=== PATIENT | female | born 1935 | race Caucasian/White ===

== ENCOUNTER 2017-09-28 06:40 | Outpatient (CLI) ==
[2016-10-09 10:34] VITALS: BMI 29.4
[2017-09-28 08:38] LABS: BASOPHILS % (AUTO) 0.5 % (0.0-3.0); EOSINOPHILS # (AUTO) 0.2 K/ul (0.0-0.7); EOSINOPHILS % (AUTO) 1.9 % (0.0-7.0); HEMOGLOBIN 14.4 g/dl (12.0-16.0); IMMATURE GRANULOCYTE % (AUTO) 0.9 % (0.0-5.0); LYMPHOCYTES # (AUTO) 2.7 K/uL (0.60-3.4); LYMPHOCYTES % (AUTO) 34.8 (10.0-50.0); MEAN CORPUSCULAR HEMOGLOBIN 31.7 pg (27.0-31.0); MEAN CORPUSCULAR HGB CONC 35.1 (31.8-35.4); MEAN CORPUSCULAR VOLUME 90.3 fl (81.0-99.0); MONOCYTES # (AUTO) 0.7 K/uL (0.4-2.0); MONOCYTES % (AUTO) 8.9 (0-10); NEUTROPHILS # (AUTO) 4.1 K/ul (2.0-6.9); PLATELET COUNT 183 10^3/uL (140-440); RED BLOOD COUNT 4.54 10^6/ul (4.20-5.40); WHITE BLOOD COUNT 7.75 K/ul (4.6-10.2)
--- NOTE | 2017-09-28 08:57 | DI ---
EXAM: Two-view chest HISTORY: Shortness of breath COMPARISON: Two-view chest 04/29/2015 FINDINGS: There is stable moderate cardiomegaly. Atherosclerotic changes are seen involving the aor tic arch. There are emphysematous changes.. Degenerative changes noted throughout the mid dorsal sp ine. IMPRESSION: Stable cardiomegaly. ASVD. Emphysematous changes
[2017-09-28 09:18] LABS: ALBUMIN 3.5 g/dL (3.4-5.0); ALBUMIN/GLOBULIN RATIO 0.92; ANION GAP 13.9; BILIRUBIN,TOTAL 0.74 mg/dL (0.00-1.20); BUN/CREATININE RATIO 19.79; CALCIUM 9.6 mg/dL (8.2-10.2); CREATININE 0.96 mg/dL (0.60-1.30); POTASSIUM 3.9 mmol/L (3.5-5.10); TOTAL PROTEIN 7.3 g/dL (5.8-8.1)
== END 2017-09-28 06:41 | disposition home or self-care (01) ==
LOC: CAR 06:40
PROVIDERS: ATTEND Internal Medicine
DX: R06.02 Shortness of breath (principal); I10 Essential (primary) hypertension; I51.7 Cardiomegaly; D64.9 Anemia, unspecified; E78.5 Hyperlipidemia, unspecified; I48.91 Unspecified atrial fibrillation
CPT/HCPCS: 36415; 80053; 80061; 83036; 84443; 85025

== ENCOUNTER 2018-03-11 04:22 | Emergency (ER) ==
[2018-03-11 04:46] VITALS: BP 198/77; TEMP 99.1; BMI 29.0
[2018-03-11] MEDS ORDERED: SOLU-MEDROL 125 MG IVP STA (05:26)
[2018-03-11] MEDS ORDERED: ADRENALIN 1:1000 SDV IM STA (05:28)
--- NOTE | 2018-03-11 05:28 | ED.PDOC ---
General ED Provider: Dr. KAYLA DORAN Chief Complaint: Rash Stated Complaint: 3 month history of rash that is generalzed. Itching got worse despite vistaril and Betametasone cream. she has had a biopsy but has not gotten the results she will be following up next week. States ICe helps. has had no new soaps, Meds or cream the last months. Time Seen by Physician: 05:00 Mode of Arrival: Walk-In Information Source: Patient Primary Care Provider: KIERA ADEN Nursing and Triage Documentation Reviewed and Agree: Yes Reviewed sepsis parameters & appropriate labs ordered?: No System Inflammatory Response Syndrome: Not Applicable Sepsis Protocol: For patient's 13 years and over: Temp is 96.8 and below OR 101 and greater Pulse >90 BPM Resp >20/minute Acutely Altered Mental Status Are patient's symptoms suggestive of a new infection, such as: -Pneumonia -Skin, Soft Tissue -Endocarditis -UTI -Bone, Joint Infection -Implantable Device -Acute Abdominal Infection -Wound Infection -Meningitis -Blood Stream Catheter Infection -Unknown System Inflammatory Response Syndrome: Not Applicable Skin Complaint Exam - Skin Rash/Itching Complaint/Exam Onset/Duration: 3 months Symptoms Are: Still present Initial Severity: Severe Current Severity: Severe Location: diffuse Potential Exposures: Reports: Unknown Prior Treatment: Betametasone cream and Hydroyzine tablets Aggravating: Reports: Heat Alleviating: Reports: Cool compresses Associated Signs and Symptoms: Denies: Difficulty breathing, Fever, Chills Related History: Similar episode Skin Findings: Present: Urticaria, Papules Differential Diagnoses: Allergic Reaction, Contact Dermatitis, Urticaria Review of Systems - Review Of Systems Constitutional: Reports: No symptoms Eyes: Reports: No symptoms Ears, Nose, Mouth, Throat: Reports: No symptoms Respiratory: Reports: No symptoms Cardiac: Reports: No symptoms GI: Reports: No symptoms : Reports: No symptoms Musculoskeletal: Reports: No symptoms Skin: Reports: Rash Neurological: Reports: Anxiety, Depressed Endocrine: Reports: No symptoms Hematologic/Lymphatic: Reports: No symptoms All Other Systems: Reviewed and Negative Past Medical History - Past Medical History Endocrine: Reports: Hypothyroid, Dyslipidemia Cardiovascular: Reports: Hypertension, A-Fib Respiratory: Reports: None Hematological: Reports: None Gastrointestinal: Reports: None Genitourinary: Reports: None Neuro/Psych: Reports: None Musculoskeletal: Reports: None Cancer: Reports: Unknown Last Menstrual Period: menopausal/hysterectomy Other Pertinent Past Medical History: NEUROPATHY FEET - Surgical History General Surgical History: Reports: Hysterectomy, Cholecystectomy, Other (THYROID ) - Family History Family History: Reports: Unknown - Social History Smoking Status: Never smoker Hx Substance Use: No Alcohol Screening: None - Immunizations Tetanus Shot up to Date: Yes Physical Exam - Physical Exam Appearance: Ill-appearing Ill-appearing: Mild Eyes: PARISA, EOMI, Conjunctiva clear ENT: Nose normal, Oropharynx normal Neck: Supple Respiratory: Airway patent, Breath sounds clear, Breath sounds equal, Respirations nonlabored Cardiovascular: RRR, Pulses normal, No rub, No murmur GI/: Soft, Nontender, No masses, Bowel sounds normal, No Organomegaly Skin: Warm, Dry Neurological: Motor intact, Cranial nerves intact, Alert, Oriented Psychiatric: Anxious Critical Care Note - Critical Care Note Total Time (mins): 0 Course - Course Orders, Labs, Meds: Orders Category Date Time Status Epinephrine [Adrenalin 1:1000 Sdv] MEDS 03/11/18 05:28 Discontinued 0.3 mg IM ONCE STA Methylprednisolone Sod Succ/Pf [Solu-Medrol 125 mg] MEDS 03/11/18 05:26 Discontinued 125 mg IVP ONCE STA Medications Discontinued Medications Generic Name Dose Route Start Last Admin Trade Name Freq PRN Reason Stop Dose Admin Epinephrine HCl 0.3 mg 03/11/18 05:28 Adrenalin 1:1000 Sdv IM 03/11/18 05:29 ONCE STA Methylprednisolone Sodium Succinate 125 mg 03/11/18 05:26 Solu-Medrol 125 Mg IVP 03/11/18 05:27 ONCE STA Vital Signs: Temp Pulse Resp BP Pulse Ox 03/11/18 04:31 99.1 F 82 20 198/77 H 95 Departure - Departure Time of Disposition: 05:45 Disposition: HOME SELF-CARE Discharge Problem: Pruritic rash Instructions: Dermatitis (ED) Condition: Stable Pt referred to PMD for follow-up: Yes IPMP verified?: No Additional Instructions: Take Medications as prescribed Follow up with you Mri Technician Prescriptions: Methylprednisolone [Medrol Dosepak] 4 mg PO DIRECTED #1 pkg Allergies/Adverse Reactions: Allergies No Known Allergies Allergy (Verified 03/11/18 04:44) Home Medications: Ambulatory Orders Citalopram Hydrobromide [Celexa] 20 mg PO DAILY 11/18/14 Digoxin [Digox] 250 mcg PO DAILY 11/18/14 Furosemide [Lasix] 20 mg PO DAILY 11/18/14 Gabapentin [Neurontin] 300 mg PO BID 11/18/14 Hydrocodone Bit/Acetaminophen [Lortab 10-500] 1 tab PO BID PRN 11/18/14 Levothyroxine Sodium [Synthroid] 100 mcg PO DAILY 11/18/14 Losartan Potassium [Cozaar] 100 mg PO DAILY 11/18/14 Omeprazole [Prilosec] 20 mg PO DAILY 11/18/14 Potassium Chloride [Klor-Con 10] 20 meq PO DAILY 11/18/14 Warfarin Sodium [Coumadin] 3 mg PO DAILY 11/18/14 Pravastatin Sodium [Pravachol] 1 tab PO DAILY 02/15/15 Methylprednisolone [Medrol Dosepak] 4 mg PO DIRECTED #1 pkg 03/11/18 Disposition Discussed With: Patient, Family
[2018-03-11] MEDS ORDERED: EPINEPHRINE 1:1,000 AMP ONE (05:34)
== END 2018-03-11 06:09 | disposition home or self-care (01) ==
LOC: ED 04:22
DX: R21 Rash and other nonspecific skin eruption (principal); L29.9 Pruritus, unspecified
CPT/HCPCS: 96372; 96374; 99282

== ENCOUNTER 2018-08-26 12:35 | Outpatient (CLI) | payer OTHER ==
--- NOTE | 2018-08-26 13:58 | DI ---
EXAM: Three views of the cervical spine. History: Cervical neck pain. Comparison: Cervical spine radiograph 08/13/2014 Findings: No acute fracture or subluxation of the cervical spine. No prevertebral soft tissue swell ing. Predental space is not widened. Moderate disc space narrowing at C5-6 and C6-7 slightly progre ssed compared to the prior study with prominent anterior osteophytes. Mild to moderate disc space na rrowing seen elsewhere. Impression: 1. No acute osseous abnormality of the cervical spine. 2. Progressive degenerative disc disease
--- NOTE | 2018-08-26 14:02 | DI ---
EXAM: Three views of the thoracic spine. History: Thoracic back pain. Comparison: Thoracic spine radiograph 08/13/2014 Findings: No acute fracture or subluxation of the thoracic spine. Mild to moderate multilevel disc space narrowing again noted with endplate sclerosis and prominent anterior osteophytes. Impression: 1. No acute osseous abnormality of the thoracic spine. 2. Mild to moderate degenerative disc disease is not significantly changed.
== END 2018-08-26 12:36 | disposition home or self-care (01) ==
LOC: RAD 12:35
PROVIDERS: ATTEND Internal Medicine
DX: M54.6 Pain in thoracic spine (principal); M54.2 Cervicalgia

== ENCOUNTER 2021-04-25 07:00 | Inpatient (IN) ==
[2021-04-25] MEDS ORDERED: ZOFRAN 4 MG/2 ML IVP ONE (07:50)
[2021-04-25] MEDS ORDERED: SODIUM CHLORIDE 1,000 ML IV STA (07:50)
--- NOTE | 2021-04-25 07:57 | ED.PDOC ---
General ED Provider: Dr. JAGJIT VALADEZ MD Chief Complaint: Urinary Problem Stated Complaint: burning urination and chest pain Time Seen by Provider: 04/25/21 07:57 Mode of Arrival: Wheelchair Information Source: Patient Primary Care Provider: KIERA ADEN Nursing and Triage Documentation Reviewed and Agree: Yes Does patient meet sepsis criteria?: No System Inflammatory Response Syndrome: Not Applicable Sepsis Protocol: For patient's 13 years and over: Temp is 96.8 and below OR 101 and greater Pulse >90 BPM Resp >20/minute Acutely Altered Mental Status Are patient's symptoms suggestive of a new infection, such as: -Pneumonia -Skin, Soft Tissue -Endocarditis -UTI -Bone, Joint Infection -Implantable Device -Acute Abdominal Infection -Wound Infection -Meningitis -Blood Stream Catheter Infection -Unknown Cardiovascular Complaint Exam Chest Pain Complaint/Exam Onset: Gradual Symptoms Are: Still present Timing: Intermittent Initial Severity: Mild Current Severity: Mild Location: Reports Midsternal Pain Radiates: Reports None Character: Reports Aching Quality Indicator For Non-Traumatic Chest Pain/Syncope: EKG Performed Review of Systems Review Of Systems Constitutional: Denies Fever Eyes: Reports No symptoms Ears, Nose, Mouth, Throat: Reports No symptoms Respiratory: Reports Short of air Cardiac: Reports Chest pain GI: Reports Abdominal pain; Denies Abdomen distended : Reports Burning Musculoskeletal: Reports Back pain Skin: Reports No symptoms Neurological: Reports No symptoms All Other Systems: Other [facility] Social History Smoking and tobacco status: Former smoker Female Reproductive History Menstrual Hx Hysterectomy: Yes Hx Tubal Ligation: No Physical Exam Physical Exam Appearance: Reports Well-appearing Ill-appearing: Not Applicable Pain Distress: Mild Eyes: Reports PARISA ENT: Reports Not Examined Neck: Supple Respiratory: Reports Airway patent and Breath sounds clear Cardiovascular: Reports RRR GI/: Reports Soft; Denies Tender Musculoskeletal: Reports ROM intact Skin: Reports Warm and Dry Neurological: Reports Sensation intact Psychiatric: Reports Affect appropriate Interpretation Radiology Interpretation Radiology Interpretation By: Radiologist Radiology Results: No acute changes Exam Interpreted: CXR Radiology Interpretation By: Radiologist Exam Interpreted: CT Scan Xray Comments: degen changes in L spine, +left hydronephrosis w/o stone EKG Interpretation Rate: Normal Rhythm: Other Interpretation: atrial fib 73, lvh, lateral t wave abnormal similar to 02/2014 Re-Evaluation Re-Evaluation Time of Re-Evaluation: 09:26 Status: Improved Vital Signs Stable: Yes Appearance: NAD Skin: Warm and Dry Neuro: Alert and Oriented X3 Critical Care Note Critical Care Note Total Critical Care Time (mins): 0 Course Course Hematology/Chemistry: 04/25/21 07:57 04/25/21 07:57 Orders, Labs, Meds: Lab Review 04/25/21 04/25/21 04/25/21 07:57 07:57 07:57 WBC 12.44 H RBC 4.02 L Hgb 12.7 Hct 38.2 MCV 95.0 MCH 31.6 H MCHC 33.2 RDW Coeff of Caleb 14.2 Plt Count 157 Immature Gran % (Auto) 1.4 Neut % (Auto) 73.4 Lymph % (Auto) 10.2 [place] % (Auto) 13.6 H Eos % (Auto) 1.2 Baso % (Auto) 0.2 Neut # (Auto) 9.1 H Lymph # (Auto) 1.3 [place] # (Auto) 1.7 Eos # (Auto) 0.2 Baso # (Auto) 0.0 Immature Gran # (Auto) 0.2 PT 18.5 H INR 1.74 Sodium 138.3 Potassium 4.05 Chloride 100.9 Carbon Dioxide 32.2 H Anion Gap 9.25 BUN 25.4 H Creatinine 1.17 Estimated GFR (MDRD) 44.00 BUN/Creatinine Ratio 21.70 Glucose 167.6 H Calcium 9.26 Total Bilirubin 0.98 AST 20.8 ALT 13.3 Alkaline Phosphatase 64.9 Total Creatine Kinase 26.5 L Troponin I 0.025 Total Protein 7.67 Albumin 4.48 Globulin 3.19 Albumin/Globulin Ratio 1.40 Urine Color Urine Clarity Urine pH Ur Specific [place] Urine Protein Urine Glucose (UA) Urine Ketones Urine Blood Urine Nitrite Urine Bilirubin Urine Urobilinogen Ur Leukocyte Esterase Urine Microscopic RBC Urine Microscopic WBC Ur Squamous Epith Cells Urine Bacteria Digoxin 04/25/21 04/25/21 07:57 08:45 WBC RBC Hgb Hct MCV MCH MCHC RDW Coeff of [place] Plt Count Immature Gran % (Auto) Neut % (Auto) Lymph % (Auto) [place] % (Auto) Eos % (Auto) Baso % (Auto) Neut # (Auto) Lymph # (Auto) [place] # (Auto) Eos # (Auto) Baso # (Auto) Immature Gran # (Auto) PT INR Sodium Potassium Chloride Carbon Dioxide Anion Gap BUN Creatinine Estimated GFR (MDRD) BUN/Creatinine Ratio Glucose Calcium Total Bilirubin AST ALT Alkaline Phosphatase Total Creatine Kinase Troponin I Total Protein Albumin Globulin Albumin/Globulin Ratio Urine Color Yellow Urine Clarity Clear Urine pH 7.5 Ur Specific [place] 1.015 Urine Protein 2+ H Urine Glucose (UA) Negative Urine Ketones Negative Urine Blood 2+ H Urine Nitrite Negative Urine Bilirubin Negative Urine Urobilinogen 1.0 H Ur Leukocyte Esterase 2+ H Urine Microscopic RBC 30-50 Urine Microscopic WBC 10-20 Ur Squamous Epith Cells 5-10 Urine Bacteria 1+ Digoxin 0.94 Orders Category Date Time Status EKG-(ED ONLY) Stat CARDIO 04/25/21 07:48 Completed CBC W/ AUTO DIFF Stat LAB 04/25/21 07:57 Completed COMPREHENSIVE METABOLIC PANEL Stat LAB 04/25/21 07:57 Completed CREATINE KINASE Stat LAB 04/25/21 07:57 Completed DIGOXIN Stat LAB 04/25/21 07:57 Completed PT WITH INR Stat LAB 04/25/21 07:57 Completed TROPONIN I Stat LAB 04/25/21 07:57 Completed URINALYSIS C & S IF INDICATED Stat LAB 04/25/21 08:45 Completed URINE CULTURE Stat LAB 04/25/21 08:45 Received Clonidine HCl [Catapres] MEDS 04/25/21 09:23 Once 0.1 mg PO ONCE ONE Ondansetron HCl/Pf [Zofran 4 mg/2 ml] MEDS 04/25/21 07:50 Discontinued 4 mg IVP ONCE ONE Piperacillin Sodium/Tazobactam [Zosyn 3.375 gm] 3.375 MEDS 04/25/21 09:23 Orde red gm 0.9 % Sodium Chloride [Sodium Chloride] 50 ml IV ONCE Sodium Chloride 0.9% [Sodium Chloride] 1,000 ml MEDS 04/25/21 07:50 Discontinued IV BOLUS CHEST, 1V AP ONLY Stat RADS 04/25/21 07:[address] ABDOMEN/PELVIS WO CONTRAST Stat RADS 04/25/21 07:[address] LUMBAR SPINE W/O CONTRAST Stat RADS 04/25/21 07:50 Completed Medications Discontinued Medications Generic Name Dose Route Start Last Admin Trade Name Freq PRN Reason Stop Dose Admin Clonidine 0.1 mg 04/25/21 09:23 Clonidine Hcl 0.1 Mg Tablet PO 04/25/21 09:24 ONCE ONE Sodium Chloride 1,000 mls @ 1,000 mls/hr 04/25/21 07:50 04/25/21 08:43 Sodium Chloride IV 04/25/21 08:49 1,000 mls/hr BOLUS STA Administration Ondansetron HCl 4 mg 04/25/21 07:50 04/25/21 08:25 Ondansetron Hcl/Pf 4 Mg/2 Ml Sdv IVP 04/25/21 07:51 4 mg ONCE ONE Administration Vital Signs: Temp Pulse Resp BP Pulse Ox 04/25/21 07:00 98.8 F 84 16 183/69 H 94 L LEE Risk Score LEE Risk Score: Risk Score Odds of by 30D 0 0.1 (0.1-0.2) 1 0.3 (0.2-0.3) 2 0.4 (0.3-0.5) 3 0.7 (0.6-0.9) 4 1.2 (1.0-1.5) 5 2.2 (1.9-2.6) 6 3.0 (2.5-3.6) 7 4.8 (3.8-6.1) Discharge Plan Discharge Prescriptions: No Action potassium chloride [Klor-Con 10] 10 MEQ tablet extended release 20 meq PO DAILY RF: 0 digoxin [Digox] 250 MCG tablet 250 mcg PO DAILY RF: 0 warfarin [Coumadin] 3 MG tablet 3 mg PO DAILY RF: 0 levothyroxine [Synthroid] 100 MCG tablet 100 mcg PO DAILY RF: 0 hydrocodone-acetaminophen 1 TAB tablet 1 tab PO BID PRN (Reason: arthritis pain) RF: 0 citalopram 20 MG tablet 20 mg PO DAILY RF: 0 gabapentin 300 MG capsule 300 mg PO BID RF: 0 omeprazole 20 MG capsule,delayed release(DR/EC) 20 mg PO DAILY RF: 0 furosemide [Lasix] 20 MG tablet 20 mg PO DAILY RF: 0 losartan [Cozaar] 100 MG tablet 100 mg PO DAILY RF: 0 pravastatin 20 MG tablet 1 tab PO DAILY RF: 0 ED Provider: JAGJIT VALADEZ Physician Progress Note: [inpatient tele admit d/w Dr Aden for chest pain, left hydronephrosis, dehydration, uti]
[2021-04-25 08:05] LABS: BASOPHILS % (AUTO) 0.2 % (0.0-3.0); EOSINOPHILS # (AUTO) 0.2 K/ul (0.0-0.7); EOSINOPHILS % (AUTO) 1.2 % (0.0-7.0); HEMATOCRIT 38.2 % (37.0-47.0); HEMOGLOBIN 12.7 g/dl (12.0-16.0); IMMATURE GRANULOCYTE # (AUTO) 0.2 (0.0-1.0); IMMATURE GRANULOCYTE % (AUTO) 1.4 % (0.0-5.0); LYMPHOCYTES # (AUTO) 1.3 K/uL (0.60-3.4); LYMPHOCYTES % (AUTO) 10.2 (10.0-50.0); MEAN CORPUSCULAR HEMOGLOBIN 31.6 pg (27.0-31.0); MEAN CORPUSCULAR HGB CONC 33.2 (31.8-35.4); MONOCYTES # (AUTO) 1.7 K/uL (0.4-2.0); NEUTROPHILS # (AUTO) 9.1 K/ul (2.0-6.9); NEUTROPHILS % (AUTO) 73.4 % (42.2-75.2); PLATELET COUNT 157 10^3/uL (140-440); RDW COEFFICIENT OF VARIATION 14.2 % (11.6-14.8); RED BLOOD COUNT 4.02 10^6/ul (4.20-5.40); WHITE BLOOD COUNT 12.44 K/ul (4.6-10.2)
[2021-04-25 08:13] LABS: PROTHROMBIN TIME 18.5 SEC (9.3-11.0)
[2021-04-25 08:14] LABS: ALANINE AMINOTRANSFERASE 13.3 U/L (0-35); ALBUMIN 4.48 g/dL (3.5-5.0); ALKALINE PHOSPHATASE 64.9 U/L (53-141); ASPARTATE AMINO TRANSFERASE 20.8 U/L (14-36); BILIRUBIN,TOTAL 0.98 mg/dL (0.2-1.3); BLOOD UREA NITROGEN 25.4 mg/dL (7-17); CALCIUM 9.26 mg/dL (8.4-10.2); CARBON DIOXIDE 32.2 mmol/L (22-30.0); CHLORIDE 100.9 mmol/L (98-107); CREATINE KINASE 26.5 U/L (30-135); CREATININE 1.17 mg/dL (0.60-1.30); GLUCOSE 167.6 mg/dL (74-106); POTASSIUM 4.05 mmol/L (3.5-5.1); SODIUM 138.3 mmol/L (134.5-145); TOTAL PROTEIN 7.67 g/dL (6.3-8.2)
[2021-04-25 08:25] LABS: TROPONIN I 0.025 ng/ml (0.0000-0.120)
[2021-04-25 08:28] LABS: MONOCYTES % (AUTO) 13.6 (0-10)
--- NOTE | 2021-04-25 08:28 | DI ---
EXAM: Chest one view, frontal view only. HISTORY: Chest pain. COMPARISON: 09/28/2017. FINDINGS: The heart size is enlarged. Atherosclerotic calcifications are present. There is no pulm onary vascular congestion. The lungs are clear. No pleural effusion or pneumothorax is seen. No ac julio osseous abnormality is identified. Since the prior study, there has been no significant interval change. IMPRESSION: No acute cardiopulmonary process.
--- NOTE | 2021-04-25 08:45 | CT ---
EXAM: CT lumbar spine without contrast. HISTORY: Back pain. COMPARISON: Abdominal CT 09/01/2020, 10/09/2016. TECHNIQUE: Multiple axial images of the lumbar spine were obtained without intravenous contrast. Im ages were reformatted in the sagittal and coronal planes. FINDINGS: The normal curvature and alignment are maintained. Vertebral body heights are normal. Mo derate loss of disc height at L4-5. Mild loss of disc height at L2-3. No fracture or subluxation is seen. T12-L1: No neural compromise. L1-2: No neural compromise. L2-3: Disc osteophyte formation causes mild central canal stenosis. L3-4: Broad-based disc bulge, facet arthropathy and thickening of the ligament flavum flattens the v entral thecal sac. L4-5: Broad-based disc bulge, disc osteophyte formation, thickening of ligamentum flavum and facet a rthropathy cause severe central canal stenosis and mild bilateral neural foraminal narrowing. L5-S1: Disc osteophyte formation and facet arthropathy with mild to moderate neural foraminal narrow ing. Adjacent soft tissues are unremarkable. Right lung bases are clear. Right renal cysts. Probable sm all hemorrhagic left renal cyst, incompletely imaged. Left pelviectasis stable from prior abdominal CT. Diverticulosis. IMPRESSION: 1. No acute fracture. 2. Multilevel degenerative changes as described, greatest at L4-5 with severe central canal stenosis . All CT scans are performed using dose optimization techniques as appropriate to the performed exam an d include at least one of the following: Automated exposure control, adjustment of the mA and/or kV according t o size, and the use of iterative reconstruction technique.
--- NOTE | 2021-04-25 08:48 | CT ---
EXAM: CT abdomen pelvis without contrast HISTORY: Abdominal pain COMPARISON: 09/01/2020 TECHNIQUE: CT abdomen pelvis performed with intravenous contrast. Coronal and sagittal reformatted images obtained. FINDINGS: Mild bibasilar subsegmental atelectasis and/or scarring. No free air. No acute abnormali ties of the bones. Generate change in the spine. Osteoarthritis of the hips. The heart is enlarged . Evaluation organ parenchyma limited without contrast. Liver is enlarged. Possible contour nodula rity of the liver. +Granulomas calcification in the liver. Patient status post cholecystectomy. Pa ncreas unremarkable. Spleen with granulomas calcification, otherwise unremarkable. Adrenals unremar kable. 5.7 cm right renal cyst and additional right renal lesions measuring 2.0 and 2.9 cm measuring greater than simple fluid attenuation. Mild to moderate left hydronephrosis without obstructing lesly culus identified. No hydroureter identified. Mild left perinephric stranding. Bladder unremarkable . Patient status post hysterectomy. Small fat-containing periumbilical hernia. Aorta normal in lesly iber. Moderate atherosclerosis. No lymphadenopathy. No ascites. Small hiatal hernia. Nonspecific bowel gas pattern with mild gaseous distension of a few loops small bowel. Appendix not visualized. Colonic diverticulosis. IMPRESSION: 1. Mild to moderate left hydronephrosis without obstructing calculus or hydroureter. Hydronephrosis also present on prior examination. Etiology is indeterminate. Ureteropelvic junction obstruction, stricture, or non-visualized mass within the differential diagnosis. Recently passed stone considere d less likely given persistence. Recommend urology consultation and consider further evaluation with CT urogram. 2. Nonspecific left perinephric stranding, could relate to #1. Recommend clinical correlation for a ny evidence of infectious etiology. 3. Two right renal lesions measuring greater than simple fluid attenuation, indeterminate. These ca n also be evaluated with CT urogram. Additional right renal cyst. 4. Nonspecific bowel gas pattern with mild gaseous distension of a few loops small bowel, could rela te to mild ileus or enteritis. 5. Hepatomegaly. Possible cirrhotic configuration of the liver. 6. Colonic diverticulosis 7. Small hiatal hernia. 8. Atherosclerosis. All CT scans are performed using dose optimization techniques as appropriate to the performed exam an d include at least one of the following: Automated exposure control, adjustment of the mA and/or kV according t o size, and the use of iterative reconstruction technique.
[2021-04-25 08:56] LABS: BILIRUBIN,URINE Negative (NEGATIVE); CLARITY,URINE Clear (CLEAR); COLOR,URINE Yellow (YELLOW); GLUCOSE, URINE (UA) Negative (NEGATIVE); KETONES,URINE Negative (NEGATIVE); LEUKOCYTE ESTERASE ,URINE 2+ (NEGATIVE); NITRITE,URINE Negative (NEGATIVE); PH,URINE 7.5 (5-9); PROTEIN,URINE 2+ (NEGATIVE); URINE, BLOOD 2+ (NEGATIVE)
[2021-04-25 08:58] LABS: URINE RBC, MICROSCOPIC 30-50 (0-2)
[2021-04-25 09:00] LABS: BACTERIA,URINE 1+ (NOT PRESENT)
[2021-04-25] MEDS ORDERED: ZOSYN 3.375 GM 3.375 GM in SODIUM CHLORIDE 50 ML IV ONE (09:23)
[2021-04-25] MEDS ORDERED: CATAPRES PO ONE (09:23)
[2021-04-25 09:28] LABS: BORDETELLA PARAPERTUSSIS (PCR) NOT DETECTED (NOT DETECT); BORDETELLA PERTUSSIS (PCR) NOT DETECTED (NOT DETECT); CHLAMYDIA PNEUMONIAE (PCR) NOT DETECTED (NOT DETECT); CORONAVIRUS 229E (PCR) NOT DETECTED (NOT DETECT); CORONAVIRUS HKU1 (PCR) NOT DETECTED (NOT DETECT); CORONAVIRUS NL63 (PCR) NOT DETECTED (NOT DETECT); CORONAVIRUS OC43 (PCR) NOT DETECTED (NOT DETECT); HUMAN METAPNEUMOVIRUS (PCR) NOT DETECTED (NOT DETECT); HUMAN RHINOVIRUS/ENTEROV (PCR) NOT DETECTED (NOT DETECT); INFLUENZA B (PCR) NOT DETECTED (NOT DETECT); MYCOPLASMA PNEUMONIAE (PCR) NOT DETECTED (NOT DETECT); PARAINFLUENZA VIRUS 1 (PCR) NOT DETECTED (NOT DETECT); PARAINFLUENZA VIRUS 2 (PCR) NOT DETECTED (NOT DETECT); PARAINFLUENZA VIRUS 3 (PCR) NOT DETECTED (NOT DETECT); PARAINFLUENZA VIRUS 4 (PCR) NOT DETECTED (NOT DETECT); RESPIRATORY SYNCYTIAL V (PCR) NOT DETECTED (NOT DETECT); SARS_COV_2 (PCR) NOT DETECTED (NOT DETECT)
[2021-04-25] MEDS ORDERED: TYLENOL PO ONE (09:29)
[2021-04-25 10:15] LABS: ADENOVIRUS (PCR) NOT DETECTED (NOT DETECT)
[2021-04-25 11:08] VITALS: BMI 28.8
[2021-04-25] MEDS ORDERED: NEURONTIN PO PRN (11:19)
[2021-04-25] MEDS ORDERED: ZANAFLEX PO PRN (11:49)
[2021-04-25] MEDS ORDERED: DEXTROSE 5%-1/2NS IV SOLUTION 1,000 ML IV SCH (12:30)
[2021-04-25] MEDS ORDERED: ZOSYN 3.375 GM 3.375 GM in SODIUM CHLORIDE 50 ML IV SCH ×2 (13:00→14:00)
[2021-04-25] MEDS ORDERED: COUMADIN PO SCH (18:50)
[2021-04-25] MEDS: NORCO 10-325 PO PRN (20:18)
[2021-04-25] MEDS: ZOSYN 3.375 GM 3.375 GM in SODIUM CHLORIDE 50 ML IV SCH ×2 (20:19→23:16)
[2021-04-26] MEDS: NORCO 10-325 PO PRN (04:59)
[2021-04-26 05:23] LABS: BASOPHILS % (AUTO) 0.4 % (0.0-3.0); EOSINOPHILS # (AUTO) 0.2 K/ul (0.0-0.7); EOSINOPHILS % (AUTO) 1.8 % (0.0-7.0); HEMATOCRIT 33.3 % (37.0-47.0); HEMOGLOBIN 11.1 g/dl (12.0-16.0); IMMATURE GRANULOCYTE # (AUTO) 0.1 (0.0-1.0); IMMATURE GRANULOCYTE % (AUTO) 0.9 % (0.0-5.0); LYMPHOCYTES # (AUTO) 1.3 K/uL (0.60-3.4); LYMPHOCYTES % (AUTO) 13.1 (10.0-50.0); MEAN CORPUSCULAR HGB CONC 33.3 (31.8-35.4); MONOCYTES # (AUTO) 1.2 K/uL (0.4-2.0); MONOCYTES % (AUTO) 11.9 (0-10); NEUTROPHILS % (AUTO) 71.9 % (42.2-75.2); PLATELET COUNT 137 10^3/uL (140-440); RDW COEFFICIENT OF VARIATION 14.3 % (11.6-14.8); RED BLOOD COUNT 3.47 10^6/ul (4.20-5.40); WHITE BLOOD COUNT 9.73 K/ul (4.6-10.2)
[2021-04-26 05:39] LABS: PROTHROMBIN TIME 16.7 SEC (9.3-11.0)
[2021-04-26 05:43] LABS: ALANINE AMINOTRANSFERASE 10.4 U/L (0-35); ALBUMIN 3.6 g/dL (3.5-5.0); ALKALINE PHOSPHATASE 46.9 U/L (53-141); BILIRUBIN,TOTAL 1.2 mg/dL (0.2-1.3); BLOOD UREA NITROGEN 22.2 mg/dL (7-17); CALCIUM 8.47 mg/dL (8.4-10.2); CARBON DIOXIDE 30.6 mmol/L (22-30.0); CHLORIDE 102.9 mmol/L (98-107); CREATININE 1.17 mg/dL (0.60-1.30); GLUCOSE 120.9 mg/dL (74-106); POTASSIUM 3.99 mmol/L (3.5-5.1); SODIUM 138.3 mmol/L (134.5-145); TOTAL PROTEIN 6.37 g/dL (6.3-8.2)
[2021-04-26] MEDS: LASIX TAB PO SCH (06:44)
[2021-04-26] MEDS: PRILOSEC PO SCH (06:44)
[2021-04-26] MEDS: SYNTHROID PO SCH (06:44)
[2021-04-26] MEDS: ZOSYN 3.375 GM 3.375 GM in SODIUM CHLORIDE 50 ML IV SCH (06:44)
[2021-04-26] MEDS ORDERED: GLUCOPHAGE PO SCH (08:30)
[2021-04-26] MEDS ORDERED: MICRO-K CAP PO SCH (09:00)
[2021-04-26] MEDS: K-DUR PO SCH (09:08)
[2021-04-26] MEDS: LEXAPRO PO SCH (09:08)
[2021-04-26] MEDS: COZAAR PO SCH (09:08)
[2021-04-26] MEDS: PRAVACHOL PO SCH (09:08)
--- NOTE | 2021-04-26 09:47 | PCM.PROG ---
Attending Provider: ATTENDING PROVIDER: Dr. KIERA BRITO This patient is seen with Paula Shaw, Nurse Practitioner. DATE OF SERVICE: 04/26/21 SUBJECTIVE: This 85 year old /WHITE F was hospitalized 04/25/21. The patient is resting comfortably in bed. She reports she did not sleep last night. She states history of enlarged kidney and saw Dr. Ibarra one time and did not return for followup. Kidney function improved this morning. REVIEW OF SYSTEMS: CONSTITUTIONAL: Weakness. No night sweats. No fatigue, malaise, lethargy. No fever or chills. HEENT: Eyes: No visual changes. No eye pain. No eye discharge. ENT: No runny nose. No epistaxis. No sinus pain. No odynophagia. No congestion. RESPIRATORY: No cough, no congestion. No hemoptysis. No shortness of breath. CARDIOVASCULAR: No angina symptoms. No CHF symptoms. No atypical chest pain for CAD. No palpitations. No orthopnea.. GASTROINTESTINAL: No abdominal pain. No nausea or vomiting. No diarrhea or constipation. No hematemesis. No hematochezia. GENITOURINARY: Dysuria. No urgency. No frequency. No hematuria. No obstructive symptoms. No discharge. No pain. No significant abnormal bleeding. MUSCULOSKELETAL: No musculoskeletal pain; no joint swelling. NEUROLOGICAL: Awake, alert, oriented to time, place and person. No headache. No neck pain. No syncope. No seizures. No dizziness. PSYCHIATRIC: Not anxious. No depression. No suicidal thoughts. No homicidal thoughts. SKIN: No rash. No lesions. No wounds. ENDOCRINE: No unexplained weight loss. No weight gain. HEMATOLOGIC/LYMPHATIC: No anemia. No purpura. No petechiae. No prolonged or excessive bleeding. No palpable lymph nodes. PHYSICAL EXAMINATION: GENERAL: The patient is awake, alert and oriented, lying/sitting in bed in no distress. VITAL SIGNS: Temperature 97.6 F, Pulse 73, Respiratory Rate 18, BP 146/62, Pulse Ox 92% HEENT: Head normocephalic, atraumatic. Eyes: Extraocular muscles are intact. Pupils are equal, round and reactive to light and accommodation. Ears: No lesions. Nose appeared normal. Throat: No exudate or erythema. NECK: Supple. No JVD, no carotid bruit. No lymphadenopathy or thyromegaly. LUNGS: Diminished breath sounds. Clear to auscultation. Percussion note normal. Chest symmetrical. HEART: Irregular heart rate. S1, S2, no S3. No murmurs. No cyanosis or clubbing. No ascites. Pulses: Dorsalis pedis and posterior tibial pulses +1 to +2 both sides. ABDOMEN: Soft. Non-tender. Bowel sounds active. No CVA tenderness. No mass felt. EXTREMITIES: No edema. Full range of motion of all extremities, equal. NEUROLOGIC: No focal deficit. Cranial nerves II through XII are grossly intact. No headache. No double vision. SKIN: Not dry. Intact. Turgor-normal. LYMPHATIC: No palpable lymph nodes/no lymphedema. MUSCULOSKELETAL: Normal joints with no swelling. Muscle tone is normal. LAB REVIEW: 04/26/21 04:43 04/26/21 04:43 04/26/21 04:43: Sodium 138.3, Potassium 3.99, Chloride 102.9, Carbon Dioxide 30.6 H, Anion Gap 8.79, BUN 22.2 H, Creatinine 1.17, Estimated GFR (MDRD) 44.00, BUN/Creatinine Ratio 18.97, Glucose 120.9 H, Calcium 8.47, Total Bilirubin 1.20, AST 19.0, ALT 10.4, Alkaline Phosphatase 46.9 L, Total Protein 6.37, Albumin 3.60, Globulin 2.77, Albumin/Globulin Ratio 1.29 04/26/21 04:43: WBC 9.73, RBC 3.47 L, Hgb 11.1 L, Hct 33.3 L, MCV 96.0, MCH 32.0 H, MCHC 33.3, RDW Coeff of Caleb 14.3, Plt Count 137 L, Immature Gran % (Auto) 0.9, Neut % (Auto) 71.9, Lymph % (Auto) 13.1, [place] % (Auto) 11.9 H, Eos % (Auto) 1.8, Baso % (Auto) 0.4, Neut # (Auto) 7.0 H, Lymph # (Auto) 1.3, [place] # (Auto) 1.2, Eos # (Auto) 0.2, Baso # (Auto) 0.0, Immature Gran # (Auto) 0.1 04/26/21 04:43: PT 16.7 H, INR 1.57 04/26/21 00:05: Troponin I 0.018 04/25/21 18:06: Troponin I 0.022 04/25/21 12:30: Troponin I 0.036 04/25/21 09:25: Adenovirus (PCR) Not detected, B. pertussis DNA (PCR) Not detected, B.parapertussis DNA PCR Not detected, C. pneumoniae DNA (PCR) Not detected, Coronavirus OC43 (PCR) Not detected, Coronavirus HKU1 (PCR) Not dete cted, Coronavirus 229E (PCR) Not detected, Coronavirus NL63 (PCR) Not detected, Human Metapneumovir PCR Not detected, Influenza Type A (PCR) Not detected, Influenza B (RT-PCR) Not detected, M. pneumoniae (PCR) Not detected, Parainfluenza 1 (PCR) Not detected, Parainfluenza 2 (PCR) Not detected, Para influenza 3 (PCR) Not detected, Parainfluenza 4 (PCR) Not detected, RSV (PCR) Not detected, Entero/Rhino (PCR) Not detected, SARS-CoV-2 (PCR) Not detected 04/25/21 08:45: Urine Color Yellow, Urine Clarity Clear, Urine pH 7.5, Ur Specific [place] 1.015, Urine Protein 2+ H, Urine Glucose (UA) Negative, Urine Ketones Negative, Urine Blood 2+ H, Urine Nitrite Negative, Urine Bilirubin Negative, Urine Urobilinogen 1.0 H, Ur Leukocyte Esterase 2+ H, Urine Microscopic RBC 30-50, Urine Microscopic WBC 10-20, Ur Squamous Epith Cells 5- 10, Urine Bacteria 1+ 04/25/21 07:57: Digoxin 0.94 04/25/21 07:57: PT 18.5 H, INR 1.74 04/25/21 07:57: Sodium 138.3, Potassium 4.05, Chloride 100.9, Carbon Dioxide 32.2 H, Anion Gap 9.25, BUN 25.4 H, Creatinine 1.17, Estimated GFR (MDRD) 44.00, BUN/Creatinine Ratio 21.70, Glucose 167.6 H, Calcium 9.26, Total Bilirubin 0.98, AST 20.8, ALT 13.3, Alkaline Phosphatase 64.9, Total Creatine Kinase 26.5 L, Troponin I 0.025, Total Protein 7.67, Albumin 4.48, Globulin 3.19, Albumin/Globulin Ratio 1.40 04/25/21 07:57: WBC 12.44 H, RBC 4.02 L, Hgb 12.7, Hct 38.2, MCV 95.0, MCH 31.6 H, MCHC 33.2, RDW Coeff of Caleb 14.2, Plt Count 157, Immature Gran % (Auto) 1.4, Neut % (Auto) 73.4, Lymph % (Auto) 10.2, [place] % (Auto) 13.6 H, Eos % (Auto) 1.2, Baso % (Auto) 0.2, Neut # (Auto) 9.1 H, Lymph # (Auto) 1.3, [place] # (Auto) 1.7, Eos # (Auto) 0.2, Baso # (Auto) 0.0, Immature Gran # (Auto) 0.2 ASSESSMENT: Please see below. 1. Urinary tract infection 2. Left hydronephrosis 3. Dehydration - resolved 4. Multiple renal masses per CT PLAN: 1. Give extra 3 mg of Coumadin for a total of 6 mg today. 2. Continue IV antibiotics. 3. Will get records from Dr. Ibarra. 4. CT urogram today. 5. Ativan 0.5 mg q.h.s. Plan and coordination of the patient's care discussed in the presence of [employer] Consultant and nurse. CONDITION: Stable SCRIBED BY: RADHA OLIVARES [employer] Consultant scribed while in presence of service performed by Dr. Brito/Paula Shaw APRN on 04/26/21 ([id number])
[2021-04-26] MEDS: PLAQUENIL PO SCH (11:36)
[2021-04-26] MEDS: ZOSYN 3.375 GM 3.375 GM in SODIUM CHLORIDE 100 ML IV SCH ×3 (12:12→23:14)
--- NOTE | 2021-04-26 12:44 | PN ---
DATE OF SERVICE: 04/25/2021 SUBJECTIVE: The patient was hospitalized with multiple complaints. Main complaint was generalized pain, feeling fatigued and tired with abdominal discomfort. The patient on further workup with CT scan of the abdomen showed left sided hydronephrosis along with possibility of urinary tract infection. The patient was dehydration with elevated BUN. Skin turgor was not good. The patient has history of atrial fibrillation. The patient will treated with IV fluids, IV antibiotics. Culture sensitivity of urine is pending. We will check on her hydronephrosis status. History and Physical was done with the Nurse Practitioner. with the plan of action. TIME SPENT: More than 30 minutes. Plan and coordination of the patient's care discussed in the presence of nurse. JENNIFER
--- NOTE | 2021-04-26 13:21 | CT ---
EXAM: CT abdomen pelvis with and without contrast, CT urogram. HISTORY: Hydronephrosis, two right renal lesions COMPARISON: 04/25/2021 TECHNIQUE: CT urogram abdomen pelvis performed with and without intravenous contrast. Coronal and s agittal reformatted images obtained. Post contrast images include venous phase and delayed imaging. 3-D and MIP reformatted images created. FINDINGS: Mild bibasilar atelectasis. No free air. No acute abnormalities of the bones. Degenerat geni change in the spine. Heart mildly enlarged. Liver is enlarged. Possible contour nodularity of the of the liver. Patient status post cholecystectomy. Pancreas unremarkable. Spleen with granulom as calcification, otherwise unremarkable. Adrenals unremarkable. Aorta normal in caliber. The mode rate atherosclerosis. No lymphadenopathy. Patient status post hysterectomy. Small fat-containing periumbilical hernia. Small hiatal hernia. No dilated loops small bowel. Scattered fluid-filled lo ops small bowel. Appendix not visualized. Colonic diverticulosis. Trace pelvic free fluid. No lym phadenopathy. No nephrolithiasis. No calculi visualized in the normal course of the ureters. Nonsp ecific left perinephric stranding. 3.0 cm and 2.9 cm low density right renal lesions measure slightl y greater than simple fluid attenuation without internal enhancement, likely mildly complicated cyst. Additional 5.7 cm right renal cyst measures simple fluid attenuation. Mild to moderate left hydron ephrosis without hydroureter. Relatively abrupt change in caliber of the left ureter pelvic junction . No filling defects identified in the opacified portions of the ureters. Bladder unremarkable. IMPRESSION: 1. Mild to moderate left hydronephrosis without obstructing calculus, visualized obstructing lesion, or hydroureter. This may be due to ureteropelvic junction obstruction. 2. Nonspecific left perinephric stranding, could relate to #1. Recommend clinical correlation for a ny evidence of infectious etiology. 3. Right renal cyst and two additional nonenhancing right renal lesions that likely represent mildly complicated cysts. 4. Nonspecific bowel gas pattern with scattered fluid-filled loops small bowel may relate to mild en teritis. 5. Hepatomegaly. Possible cirrhotic configuration of the liver. 6. Colonic diverticulosis. 7. Small hiatal hernia. 8. Trace pelvic free fluid. 9. Cardiomegaly All CT scans are performed using dose optimization techniques as appropriate to the performed exam an d include at least one of the following: Automated exposure control, adjustment of the mA and/or kV according t o size, and the use of iterative reconstruction technique.
[2021-04-26] MEDS ORDERED: COUMADIN PO SCH (17:00)
[2021-04-26] MEDS ORDERED: COUMADIN PO ONE (17:00)
[2021-04-26] MEDS: COUMADIN PO SCH (17:37)
[2021-04-26] MEDS: ATIVAN PO SCH (20:38)
[2021-04-27 05:27] LABS: BASOPHILS % (AUTO) 0.4 % (0.0-3.0); EOSINOPHILS # (AUTO) 0.2 K/ul (0.0-0.7); EOSINOPHILS % (AUTO) 2.3 % (0.0-7.0); HEMATOCRIT 34.2 % (37.0-47.0); HEMOGLOBIN 11.3 g/dl (12.0-16.0); IMMATURE GRANULOCYTE # (AUTO) 0.2 (0.0-1.0); IMMATURE GRANULOCYTE % (AUTO) 2.1 % (0.0-5.0); LYMPHOCYTES # (AUTO) 1.5 K/uL (0.60-3.4); LYMPHOCYTES % (AUTO) 15.2 (10.0-50.0); MEAN CORPUSCULAR HEMOGLOBIN 31.1 pg (27.0-31.0); MEAN CORPUSCULAR VOLUME 94.2 fl (81.0-99.0); MONOCYTES # (AUTO) 1.2 K/uL (0.4-2.0); NEUTROPHILS # (AUTO) 6.5 K/ul (2.0-6.9); PLATELET COUNT 148 10^3/uL (140-440); RDW COEFFICIENT OF VARIATION 13.9 % (11.6-14.8); RED BLOOD COUNT 3.63 10^6/ul (4.20-5.40)
[2021-04-27 05:35] LABS: PROTHROMBIN TIME 17.8 SEC (9.3-11.0)
[2021-04-27 05:40] LABS: ALANINE AMINOTRANSFERASE 9.9 U/L (0-35); ALBUMIN 3.73 g/dL (3.5-5.0); ALKALINE PHOSPHATASE 50.5 U/L (53-141); ASPARTATE AMINO TRANSFERASE 16.7 U/L (14-36); BILIRUBIN,TOTAL 1.05 mg/dL (0.2-1.3); BLOOD UREA NITROGEN 19.7 mg/dL (7-17); CALCIUM 8.79 mg/dL (8.4-10.2); CARBON DIOXIDE 30.2 mmol/L (22-30.0); CREATININE 1.18 mg/dL (0.60-1.30); POTASSIUM 3.53 mmol/L (3.5-5.1); SODIUM 139.4 mmol/L (134.5-145); TOTAL PROTEIN 6.73 g/dL (6.3-8.2)
[2021-04-27] MEDS: ZOSYN 3.375 GM 3.375 GM in SODIUM CHLORIDE 100 ML IV SCH ×2 (05:46→13:15)
[2021-04-27] MEDS: LASIX TAB PO SCH (05:47)
[2021-04-27] MEDS: PRILOSEC PO SCH (05:47)
[2021-04-27] MEDS: SYNTHROID PO SCH (05:47)
[2021-04-27] MEDS: NORCO 10-325 PO PRN ×2 (09:00→19:03)
[2021-04-27] MEDS: COZAAR PO SCH (09:00)
[2021-04-27] MEDS: LEXAPRO PO SCH (09:01)
[2021-04-27] MEDS: K-DUR PO SCH (09:01)
[2021-04-27] MEDS: PRAVACHOL PO SCH (09:01)
[2021-04-27] MEDS: LANOXIN PO SCH ×2 (09:03)
[2021-04-27] MEDS: PLAQUENIL PO SCH (09:04)
--- NOTE | 2021-04-27 09:41 | HP ---
DATE OF SERVICE: 04/25/2021 REASON FOR HOSPITALIZATION/HISTORY OF PRESENT ILLNESS: 85 year old white female presents to the emergency room with dysuria and fatigue. She has experienced this for several days. She complains she might have some more palpitation. She does have a history of atrial fibrillation. 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 Ibarra in October of 2020 PAST SURGICAL HISTORY: Cholecystectomy Bladder surgery, 2009 Dr. Mendoza Partial hysterectomy REVIEW OF SYSTEMS: CONSTITUTIONAL: No night sweats. Fatigue. No fever or chills. HEENT: Eyes: No visual changes. No eye pain. No eye discharge. ENT: No runny nose. No epistaxis. No sinus pain. No sore throat. No odynophagia. No ear pain. No congestion. RESPIRATORY: No cough, no congestion. No hemoptysis. No shortness of breath. CARDIOVASCULAR: No angina symptoms. No CHF symptoms. No atypical chest pain for CAD. No palpitations. No PND. No orthopnea. Dysuria. GASTROINTESTINAL: No abdominal pain. No nausea or vomiting. No diarrhea or constipation. No hematemesis. No hematochezia. GENITOURINARY: No urgency. No frequency. No dysuria. No hematuria. No obstructive symptoms. No discharge. No pain. No significant abnormal bleeding. MUSCULOSKELETAL: No musculoskeletal pain. No joint swelling. No arthritis. NEUROLOGICAL: No headache. No neck pain. No syncope. No seizures. No dizziness. PSYCHIATRIC: Not anxious. No depression. No suicidal thoughts. No homicidal thoughts. SKIN: No rash. No lesions. No wounds. ENDOCRINE: No unexplained weight loss. No weight gain. HEMATOLOGIC/LYMPHATIC: No anemia. No purpura. No petechiae. No prolonged or excessive bleeding. No palpable lymph nodes. PERSONAL/FAMILY/SOCIAL HISTORY: She lives at home with her . Nonsmoker. No alcohol or illicit drug use. MEDICATIONS: Cozaar 100mg PO daily Gabapentin 300mg PO daily PRN Omeprazole 20mg PO daily Synthroid 100mcg PO daily Klor-con 20 meq PO daily Coumadin 3mg PO daily Digoxin 250mcg PO daily Pravastatin 20mg PO daily Lasix 40mg PO daily Tizanidine 2mg PO BID PRN Hydrocodone-Acetaminophen 10-325mg PO BID PRN Metformin 500mg PO daily Hydroxychloroquine 400mg PO Q day Escitalopram Oxalate 10mg PO daily ALLERGIES: None. PHYSICAL EXAMINATION: GENERAL: The patient is alert and oriented. HEENT: Head normocephalic, atraumatic. Eyes: Extraocular muscles are intact. Pupils are equal, round and reactive to light and accommodation. Ears: No lesions. Nose appeared normal. Throat: No exudate or erythema. NECK: Supple. No JVD, no carotid bruit. No lymphadenopathy or thyromegaly. LUNGS: Diminished breath sounds. Clear to auscultation. Percussion note normal. Chest symmetrical. HEART: S1, S2, no S3. No murmur. Irregular heart rate. No cyanosis or clubbing. No ascites. Pulses: Dorsalis pedis and posterior tibial pulses +1 to +2 bilaterally. ABDOMEN: Soft. Nontender. Bowel sounds active. No CVA tenderness. No mass felt. EXTREMITIES: No edema. Full range of motion of all extremities, equal. NEUROLOGIC: No focal deficit. Cranial nerves II through XII are grossly intact. No headache, no double vision or headache. SKIN: Not dry. Intact. Turgor - normal. LYMPHATIC: No palpable lymph nodes/no lymphedema. MUSCULOSKELETAL: Normal joints with no swelling. Muscle tone is normal. LABS: WBC 12.44, hgb 12.7, hct 38.2, plt count 157, sodium 138,potassium 4.0, BUN 25, creatinine 1.1, glucose 167. Chest x-ray is normal. CT of abdomen and pelvis shows that she has mild to moderate left hydronephrosis without obstructing calculus, hydronephrosis is also present on prior exam. Possible UPJ obstruction recommend CT urogram, nonspecific left perinephric stranding, two right renal lesions, hepatomegaly, possible cerotic configuration of the liver, colonic diverticulosis, small hiatal hernia. Urine shows 1+ bacteria, 2+ leuks, 2+ blood, 2+ protein, digoxin level 0.94, INR 1.74 ASSESSMENT: 1. Urinary tract infection, culture pending 2. Left hydronephrosis 3. Atrial fibrillation 4. Cerotic configuration of the liver 5. Generalized weakness 6. Dehydration PLAN: 1. We will admit 2. Routine telemetry orders 3. CBC, CMP, INR daily 4. Continue home medications 5. IV fluids normal saline at 75cc an hour 6. IV Zosyn to be dosed by pharmacy 7. We will order CT urogram for in the morning 8. We will obtain notes from Dr. Ibarra as we do not have those Will follow closely. TIME SPENT: More than 70 minutes. [facility]
[2021-04-27] MEDS: ZOSYN 3.375 GM 3.375 GM in SODIUM CHLORIDE 50 ML IV SCH ×2 (17:41→23:45)
[2021-04-27] MEDS: COUMADIN PO SCH (17:41)
[2021-04-27] MEDS: ATIVAN PO SCH (20:33)
[2021-04-28] MEDS: ZOSYN 3.375 GM 3.375 GM in SODIUM CHLORIDE 50 ML IV SCH (05:07)
[2021-04-28 05:08] LABS: BASOPHILS % (AUTO) 0.5 % (0.0-3.0); EOSINOPHILS # (AUTO) 0.3 K/ul (0.0-0.7); HEMOGLOBIN 11.2 g/dl (12.0-16.0); IMMATURE GRANULOCYTE # (AUTO) 0.1 (0.0-1.0); IMMATURE GRANULOCYTE % (AUTO) 1.6 % (0.0-5.0); LYMPHOCYTES # (AUTO) 1.6 K/uL (0.60-3.4); LYMPHOCYTES % (AUTO) 18.9 (10.0-50.0); MEAN CORPUSCULAR HEMOGLOBIN 31.3 pg (27.0-31.0); MEAN CORPUSCULAR HGB CONC 32.9 (31.8-35.4); MONOCYTES % (AUTO) 11.8 (0-10); NEUTROPHILS # (AUTO) 5.4 K/ul (2.0-6.9); NEUTROPHILS % (AUTO) 63.2 % (42.2-75.2); PLATELET COUNT 145 10^3/uL (140-440); RDW COEFFICIENT OF VARIATION 14.1 % (11.6-14.8); RED BLOOD COUNT 3.58 10^6/ul (4.20-5.40); WHITE BLOOD COUNT 8.59 K/ul (4.6-10.2)
[2021-04-28 05:17] LABS: PROTHROMBIN TIME 19.8 SEC (9.3-11.0)
[2021-04-28 05:22] VITALS: BP 150/66; TEMP 98.2
[2021-04-28 05:23] LABS: ALANINE AMINOTRANSFERASE 10.7 U/L (0-35); ALBUMIN 3.56 g/dL (3.5-5.0); ALKALINE PHOSPHATASE 49.3 U/L (53-141); ASPARTATE AMINO TRANSFERASE 22.4 U/L (14-36); BILIRUBIN,TOTAL 0.87 mg/dL (0.2-1.3); BLOOD UREA NITROGEN 22.8 mg/dL (7-17); CALCIUM 8.79 mg/dL (8.4-10.2); CARBON DIOXIDE 31.5 mmol/L (22-30.0); CHLORIDE 105.2 mmol/L (98-107); CREATININE 1.15 mg/dL (0.60-1.30); POTASSIUM 3.67 mmol/L (3.5-5.1); SODIUM 140.8 mmol/L (134.5-145); TOTAL PROTEIN 6.44 g/dL (6.3-8.2)
[2021-04-28] MEDS: PRILOSEC PO SCH (06:12)
[2021-04-28] MEDS: LASIX TAB PO SCH (06:12)
[2021-04-28] MEDS: SYNTHROID PO SCH (06:12)
[2021-04-28] MEDS: COZAAR PO SCH (08:47)
[2021-04-28] MEDS: NORCO 10-325 PO PRN (08:47)
[2021-04-28] MEDS: K-DUR PO SCH (08:47)
[2021-04-28] MEDS: PRAVACHOL PO SCH (08:47)
[2021-04-28] MEDS: LANOXIN PO SCH (08:48)
[2021-04-28] MEDS: LEXAPRO PO SCH (08:48)
[2021-04-28] MEDS: PLAQUENIL PO SCH (08:49)
--- NOTE | 2021-04-28 09:59 | PCM.PROG ---
Attending Provider: ATTENDING PROVIDER: Dr. KIERA BRITO This patient is seen with Paula Shaw, Nurse Practitioner. DATE OF SERVICE: 04/28/21 SUBJECTIVE: This 85 year old /WHITE F was hospitalized 04/25/21. The patient has been up walking around and is eating well. No dysuria. Urine culture negative. REVIEW OF SYSTEMS: CONSTITUTIONAL: Weakness. No night sweats. No fatigue, malaise, lethargy. No fever or chills. HEENT: Eyes: No visual changes. No eye pain. No eye discharge. ENT: No runny nose. No epistaxis. No sinus pain. No odynophagia. No congestion. RESPIRATORY: No cough, no congestion. No hemoptysis. No shortness of breath. CARDIOVASCULAR: No angina symptoms. No CHF symptoms. No atypical chest pain for CAD. No palpitations. No orthopnea.. GASTROINTESTINAL: No abdominal pain. No nausea or vomiting. No diarrhea or constipation. No hematemesis. No hematochezia. GENITOURINARY: Urinary frequency. MUSCULOSKELETAL: No musculoskeletal pain; no joint swelling. NEUROLOGICAL: Awake, alert, oriented to time, place and person. No headache. No neck pain. No syncope. No seizures. No dizziness. PSYCHIATRIC: Not anxious. No depression. No suicidal thoughts. No homicidal thoughts. SKIN: No rash. No lesions. No wounds. ENDOCRINE: No unexplained weight loss. No weight gain. HEMATOLOGIC/LYMPHATIC: No anemia. No purpura. No petechiae. No prolonged or excessive bleeding. No palpable lymph nodes. PHYSICAL EXAMINATION: GENERAL: The patient is awake, alert and oriented, lying/sitting in bed in no distress. VITAL SIGNS: Temperature 98.2 F, Pulse 64, Respiratory Rate 18, BP 150/66, Pulse Ox 95% HEENT: Head normocephalic, atraumatic. Eyes: Extraocular muscles are intact. Pupils are equal, round and reactive to light and accommodation. Ears: No lesions. Nose appeared normal. Throat: No exudate or erythema. NECK: Supple. No JVD, no carotid bruit. No lymphadenopathy or thyromegaly. LUNGS: Diminished breath sounds. Clear to auscultation. Percussion note normal. Chest symmetrical. HEART: Irregular heart rate. S1, S2, no S3. No murmurs. No cyanosis or clubbing. No ascites. Pulses: Dorsalis pedis and posterior tibial pulses +1 to +2 both sides. ABDOMEN: Soft. Non-tender. Bowel sounds active. No CVA tenderness. No mass felt. EXTREMITIES: No edema. Full range of motion of all extremities, equal. NEUROLOGIC: No focal deficit. Cranial nerves II through XII are grossly intact. No headache. No double vision. SKIN: Not dry. Intact. Turgor-normal. LYMPHATIC: No palpable lymph nodes/no lymphedema. MUSCULOSKELETAL: Normal joints with no swelling. Muscle tone is normal. LAB REVIEW: 04/28/21 05:00 04/28/21 05:00 04/28/21 05:00: Sodium 140.8, Potassium 3.67, Chloride 105.2, Carbon Dioxide 31.5 H, Anion Gap 7.77, BUN 22.8 H, Creatinine 1.15, Estimated GFR (MDRD) 45.00, BUN/Creatinine Ratio 19.82, Glucose 120.0 H, Calcium 8.79, Total Bilirubin 0.87, AST 22.4, ALT 10.7, Alkaline Phosphatase 49.3 L, Total Protein 6.44, Albumin 3.56, Globulin 2.88, Albumin/Globulin Ratio 1.23 04/28/21 05:00: WBC 8.59, RBC 3.58 L, Hgb 11.2 L, Hct 34.0 L, MCV 95.0, MCH 31.3 H, MCHC 32.9, RDW Coeff of Caleb 14.1, Plt Count 145, Immature Gran % (Auto) 1.6, Neut % (Auto) 63.2, Lymph % (Auto) 18.9, [place] % (Auto) 11.8 H, Eos % (Auto) 4.0, Baso % (Auto) 0.5, Neut # (Auto) 5.4, Lymph # (Auto) 1.6, [place] # (Auto) 1.0, Eos # (Auto) 0.3, Baso # (Auto) 0.0, Immature Gran # (Auto) 0.1 04/28/21 05:00: PT 19.8 H, INR 1.86 ASSESSMENT: Please see below. 1. Urinary tract infection 2. Left hydronephrosis 3. Dehydration - resolved 4. Multiple renal masses per CT PLAN: 1. Appointment with Dr. Ibarra Plan and coordination of the patient's care discussed in the presence of [employer] and nurse. CONDITION: Stable SCRIBED BY: RADHA OLIVARES Building Maintenance Repairer scribed while in presence of service performed by Dr. Brito/Paula Shaw APRN on 04/28/21 ([id number])
--- NOTE | 2021-04-28 12:20 | CM.DICTOOL ---
ADMISSION: 04/25/21 10:26 DISCHARGE: APRIL 28, 2021 DATE OF SERVICE: 04/28/21 FINAL DIAGNOSIS UTI DEHYDRATION, RESOLVED HYDRONEPHROSIS, LEFT (DR. PURVIS) RENAL CYST, RENAL LESIONS X 2 (DR. PURVIS) ATRIAL FIBRILLATION (ON COUMADIN) HYPERTENSION DIABETES MELLITUS, TYPE 2 DYSLIPIDEMIA HYPOTHYROIDISM OSTEOARTHRITIS DDD HIATAL HERNIA, SMALL RENAL LESIONS, RIGHT (2.0 AND 2.9 CM) HEPATOMEGALY DIVERTICULOSIS CHOLECYSTECTOMY HYSTERECTOMY LAST VITALS Temp Pulse Resp BP Pulse Ox 98.2 F 94 H 19 150/66 H 95 04/28/21 05:20 04/28/21 08:48 04/28/21 08:00 04/28/21 05:20 04/28/21 05:20 TAKE THESE MEDICATIONS AT HOME Hydrocodone Bitart/Acetaminophen (Hydrocodone Bit/Acetaminophen 10/325 Mg Tablet) 1 tab PO BID PRN PRN Reason: ARTHRITIS Last Admin: 04/28/21 08:47 Dose: 1 tab Documented by: Digoxin (Digoxin 125 Mcg Tablet) 250 mcg PO DAILY [facility] Last Admin: 04/28/21 08:48 Dose: 250 mcg Documented by: Escitalopram Oxalate (Escitalopram Oxalate 10 Mg Tablet) 10 mg PO DAILY [facility] Last Admin: 04/28/21 08:48 Dose: 10 mg Documented by: Furosemide (Furosemide 40 Mg Tablet) 40 mg PO QDAC [facility] Last Admin: 04/28/21 06:12 Dose: 40 mg Documented by: Gabapentin (Gabapentin 300 Mg Capsule) 300 mg PO DAILY PRN PRN Reason: NEUROPATHY Last Admin: 04/27/21 09:07 Dose: 300 mg Documented by: Hydroxychloroquine Sulfate (Hydroxychloroquine Sulfate 200 Mg Tablet) 400 mg PO DAILY [facility] Last Admin: 04/28/21 08:49 Dose: 400 mg Documented by: Levothyroxine Sodium (Levothyroxine Sodium 100 Mcg Tablet) 100 mcg PO QDAC [facility] Last Admin: 04/28/21 06:12 Dose: 100 mcg Documented by: Losartan Potassium (Losartan Potassium 100 Mg Tablet) 100 mg PO DAILY [facility] Last Admin: 04/28/21 08:47 Dose: 100 mg Documented by: Omeprazole (Omeprazole 20 Mg Capsule.) 20 mg PO QDAC [facility] Last Admin: 04/28/21 06:12 Dose: 20 mg Documented by: Potassium Chloride (Potassium Chloride 20 Meq Tab) 20 meq PO DAILYWM [facility] Last Admin: 04/28/21 08:47 Dose: 20 meq Documented by: Pravastatin Sodium (Pravastatin Sodium 20 Mg Tablet) 20 mg PO DAILY [facility] Last Admin: 04/28/21 08:47 Dose: 20 mg Documented by: Tizanidine HCl (Tizanidine Hcl 4 Mg Tablet) 2 mg PO BID PRN PRN Reason: Spasms Last Admin: 04/25/21 12:20 Dose: 2 mg Documented by: Warfarin Sodium (Warfarin Sodium 3 Mg Tablet) 3 mg PO 1700 [facility] Last Admin: 04/27/21 17:41 Dose: 3 mg Documented by: Metformin 500 mg PO DAILY [facility] 0830 (may resume on the ) Last Admin: ALLERGIES No Known Allergies Allergy (Verified 04/25/21 07:07) DISCONTINUED MEDICATIONS NONE NEW PRESCRIPTIONS: MACROBID 100 MG BID FOR 5 DAYS (CALLED TO [facility]) SMOKING: NOT APPLICABLE DISEASE SPECIFIC EDUCATION: NEW MEDICATION RESUMING METFORMIN ON THE APPOINTMENTS HYDRATION LAB REVIEW: 04/28/21 05:00 04/28/21 05:00 04/28/21 05:00: Sodium 140.8, Potassium 3.67, Chloride 105.2, Carbon Dioxide 31.5 H, Anion Gap 7.77, BUN 22.8 H, Creatinine 1.15, Estimated GFR (MDRD) 45.00, BUN/Creatinine Ratio 19.82, Glucose 120.0 H, Calcium 8.79, Total Bilirubin 0.87, AST 22.4, ALT 10.7, Alkaline Phosphatase 49.3 L, Total Protein 6.44, Albumin 3.56, Globulin 2.88, Albumin/Globulin Ratio 1.23 04/28/21 05:00: WBC 8.59, RBC 3.58 L, Hgb 11.2 L, Hct 34.0 L, MCV 95.0, MCH 31.3 H, MCHC 32.9, RDW Coeff of Caleb 14.1, Plt Count 145, Immature Gran % (Auto) 1.6, Neut % (Auto) 63.2, Lymph % (Auto) 18.9, [place] % (Auto) 11.8 H, Eos % (Auto) 4.0, Baso % (Auto) 0.5, Neut # (Auto) 5.4, Lymph # (Auto) 1.6, [place] # (Auto) 1.0, Eos # (Auto) 0.3, Baso # (Auto) 0.0, Immature Gran # (Auto) 0.1 04/28/21 05:00: PT 19.8 H, INR 1.86 PLAN: DISCHARGE HOME DIET: CONSISTENT CARBOHYDRATES DRINK ADEQUATE LIQUIDS (WATER) ACTIVITY: GRADUALLY RESUME TOLERATED AN APPOINTMENT IS SCHEDULED WITH DR. ADEN/RUI BARRETT APRN/RENETTA COOPER APRN ON April AT 11:30 AM AN OFFICE APPOINTMENT HAS BEEN REQUESTED WITH DR. PURVIS. YOU WILL BE CALLED FROM HIS OFFICE WITH AN APPOINTMENT AFTER THE HOSPITAL RECORDS ARE REVIEWED. YOU HAVE BEEN GIVEN A DISC OF BOTH CT SCANS FOR YOU TO TAKE TO THE APPOINTMENT. CODE STATUS: DO NOT INTUBATE, CPR ONLY MRS. PURCELL IS ALERT AND ORIENTED X 4. SHE LIVES AT HOME WITH HER , ZACKERY. SHE IS AGREEABLE AND PLEASED WITH PLANS TO DISCHARGE HOME TODAY. MRS. PURCELL IS INDEPENDENT WITH ALL ACTIVITIES OF DAILY LIVING. MEAL INTAKES ARE 75- 100%. SHE DENIES NAUSEA. SHE IS CONTINENT OF BOWEL AND BLADDER. SHE REPORTS FREQUENCY OF URINATION, BUT DENIES PAIN OR BURNING. MRS. PURCELL IS AMBULATORY IN THE ROOM PER SELF WITH A STEADY GAIT. NO ASSISTIVE DEVICE IS REQUIRED BY THE PATIENT. HYDRATION STATUS HAS IMPROVED. SKIN IS INTACT. MD RUI IBARRA APRN
--- NOTE | 2021-04-28 14:27 | PN ---
DATE OF SERVICE: 04/26/21 SUBJECTIVE: The patient was seen and examined with the nurse practitioner. The patient's condition seems to be improving. Hydration status has improved. Her kidney functions are stable. Findings of hydronephrosis is the same as before. The patient had not gone to followup with Dr. Ibarra. We are going to set up the appointment, particularly the findings on Urograms have remained the same. TIME SPENT: More than 30 minutes. Plan and coordination of the patient's care discussed in the presence of nurse. JENNIFER
--- NOTE | 2021-04-28 14:38 | PN ---
DATE OF SERVICE: 04/27/21 SUBJECTIVE: The patient's condition has improved. Chest pain has resolved. UTI seems to be under control. Dehydration clinically has resolved. Left-sided hydronephrosis persists. Kidney functions are stable. REVIEW OF SYSTEMS: CONSTITUTIONAL: No night sweats. No fatigue, malaise, lethargy. No fever or chills. HEENT: Eyes: No visual changes. No eye pain. No eye discharge. ENT: No runny nose. No epistaxis. No sinus pain. No sore throat. No odynophagia. No congestion. RESPIRATORY: No cough, no congestion. No hemoptysis. No shortness of breath. CARDIOVASCULAR: No angina symptoms. No CHF symptoms. No atypical chest pain for CAD. No palpitations. No PND. No orthopnea. GASTROINTESTINAL: No abdominal pain. No nausea or vomiting. No diarrhea or constipation. No hematemesis. No hematochezia. GENITOURINARY: No urgency. No frequency. No dysuria. No hematuria. No obstructive symptoms. No discharge. No pain. No significant abnormal bleeding. MUSCULOSKELETAL: No musculoskeletal pain; no joint swelling. NEUROLOGICAL: No headache. No neck pain. No syncope. No seizures. No dizziness. PSYCHIATRIC: Not anxious. No depression. No suicidal thoughts. No homicidal thoughts. SKIN: No rash. No lesions. No wounds. ENDOCRINE: No unexplained weight loss. No weight gain. HEMATOLOGIC/LYMPHATIC: No anemia. No purpura. No petechiae. No prolonged or excessive bleeding. No palpable lymph nodes. PHYSICAL EXAMINATION: VITAL SIGNS: Temperature 98.2, pulse 70, respiratory rate 18, blood pressure 150/70, pulse ox 95%. HEENT: Head normocephalic, atraumatic. Eyes: Extraocular muscles are intact. Pupils are equal, round and reactive to light and accommodation. Ears: No lesions. Nose appeared normal. Throat: No exudate or erythema. NECK: Supple. No JVD, no carotid bruit. No lymphadenopathy or thyromegaly. LUNGS: Clear to auscultation. Percussion note normal. Chest symmetrical. HEART: S1, S2, no S3. No murmurs. No cyanosis or clubbing. No ascites. Pulses: Dorsalis pedis and posterior tibial pulses +1 to +2 bilaterally. ABDOMEN: Soft. Nontender. Bowel sounds active. No CVA tenderness. No mass felt. EXTREMITIES: No edema. Full range of motion of all extremities, equal. NEUROLOGIC: No focal deficit. Cranial nerves II through XII are grossly intact. No headache. No double vision. SKIN: Not dry. Intact. Turgor - normal. LYMPHATIC: No palpable lymph nodes/no lymphedema. MUSCULOSKELETAL: Normal joints with no swelling. Muscle tone is normal. LABS: Hemoglobin 11.3, hematocrit 34, WBC 9,600, normal differential. Creatinine 1.1, BUN 19, potassium 3.5. Covid negative. Troponin negative. ASSESSMENT: 1. UTI seems to be under control. 2. Dehydration seems to have resolved clinically as well as the BUN has improved. 3. Hydronephrosis persists for the last many months. PLAN: The patient will have followup appointment with Dr. Ibarra. CONDITION: Improving. TIME SPENT: More than 30 minutes. Plan and coordination of the patient's care discussed in the presence of nurse. JENNIFER
--- NOTE | 2021-05-02 10:44 | PN ---
DATE OF SERVICE: 04/28/21 SUBJECTIVE: The patient was seen and examined with the nurse practitioner. The patient's condition has improved. Her infectious seems to be under control. Dehydration has resolved, feeling better. Hydronephrosis on the left side is practically the same. She is going to be seen by Dr. Ibarra. The patient is ready to be discharged. TIME SPENT: More than 30 minutes. Plan and coordination of the patient's care discussed in the presence of nurse. JENNIFER
--- NOTE | 2021-05-02 10:52 | PN ---
BILLING 04/25/21 ADMISSION DAY LEVEL 5 04/26/21 INTERMEDIATE 04/27/21 INTERMEDIATE 04/28/21 D IN DISCHARGE The patient's discharge summary was done by the nurse practitioner, discharge summary tool was approved. JENNIFER
--- NOTE | 2021-05-02 13:56 | DS ---
DATE OF SERVICE: 04/28/21 CODE STATUS: DO NOT INTUBATE, CPR ONLY FINAL DIAGNOSIS: 1. UTI 2. DEHYDRATION, RESOLVED 3. HYDRONEPHROSIS, LEFT (DR. PURVIS) 4. RENAL CYST, RENAL LESIONS X 2 (DR. PURVIS) 5. ATRIAL FIBRILLATION (ON COUMADIN) 6. HYPERTENSION 7. DIABETES MELLITUS, TYPE 2 8. DYSLIPIDEMIA 9. HYPOTHYROIDISM 10. OSTEOARTHRITIS 11. DDD 12. HIATAL HERNIA, SMALL 13. RENAL LESIONS, RIGHT (2.0 AND 2.9 CM) 14. HEPATOMEGALY 15. DIVERTICULOSIS 16. CHOLECYSTECTOMY 17. HYSTERECTOMY LAST VITALS Temp Pulse Resp BP Pulse Ox 98.2 F 94 H 19 150/66 H 95 04/28/21 05:20 04/28/21 08:48 04/28/21 08:00 04/28/21 05:20 04/28/21 05:20 DISCHARGE INSTRUCTIONS: 1. DISCHARGE HOME. 2. AN APPOINTMENT IS SCHEDULED WITH DR. ADEN/RUI BARRETT APRN/RENETTA COOPER APRN ON April AT 11:30 AM. 3. AN OFFICE APPOINTMENT HAS BEEN REQUESTED WITH DR. PURVIS. YOU WILL BE CALLED FROM HIS OFFICE WITH AN APPOINTMENT AFTER THE HOSPITAL RECORDS ARE REVIEWED. 4. YOU HAVE BEEN GIVEN A DISC OF BOTH CT SCANS FOR YOU TO TAKE TO THE APPOINTMENT. MEDICATIONS AT DISCHARGE: Hydrocodone Bitart/Acetaminophen (Hydrocodone Bit/Acetaminophen 10/325 Mg Tablet) 1 tab PO BID PRN PRN Reason: ARTHRITIS Last Admin: 04/28/21 08:47 Dose: 1 tab Documented by: Digoxin (Digoxin 125 Mcg Tablet) 250 mcg PO DAILY [facility] Last Admin: 04/28/21 08:48 Dose: 250 mcg Documented by: Escitalopram Oxalate (Escitalopram Oxalate 10 Mg Tablet) 10 mg PO DAILY [facility] Last Admin: 04/28/21 08:48 Dose: 10 mg Documented by: Furosemide (Furosemide 40 Mg Tablet) 40 mg PO QDAC [facility] Last Admin: 04/28/21 06:12 Dose: 40 mg Documented by: Gabapentin (Gabapentin 300 Mg Capsule) 300 mg PO DAILY PRN PRN Reason: NEUROPATHY Last Admin: 04/27/21 09:07 Dose: 300 mg Documented by: Hydroxychloroquine Sulfate (Hydroxychloroquine Sulfate 200 Mg Tablet) 400 mg PO DAILY [facility] Last Admin: 04/28/21 08:49 Dose: 400 mg Documented by: Levothyroxine Sodium (Levothyroxine Sodium 100 Mcg Tablet) 100 mcg PO QDAC [facility] Last Admin: 04/28/21 06:12 Dose: 100 mcg Documented by: Losartan Potassium (Losartan Potassium 100 Mg Tablet) 100 mg PO DAILY [facility] Last Admin: 04/28/21 08:47 Dose: 100 mg Documented by: Omeprazole (Omeprazole 20 Mg Capsule.) 20 mg PO QDAC [facility] Last Admin: 04/28/21 06:12 Dose: 20 mg Documented by: Potassium Chloride (Potassium Chloride 20 Meq Tab) 20 meq PO DAILYWM [facility] Last Admin: 04/28/21 08:47 Dose: 20 meq Documented by: Pravastatin Sodium (Pravastatin Sodium 20 Mg Tablet) 20 mg PO DAILY [facility] Last Admin: 04/28/21 08:47 Dose: 20 mg Documented by: Tizanidine HCl (Tizanidine Hcl 4 Mg Tablet) 2 mg PO BID PRN PRN Reason: Spasms Last Admin: 04/25/21 12:20 Dose: 2 mg Documented by: Warfarin Sodium (Warfarin Sodium 3 Mg Tablet) 3 mg PO 1700 [facility] Last Admin: 04/27/21 17:41 Dose: 3 mg Documented by: Metformin 500 mg PO DAILY [facility] 0830 (may resume on the ) Last Admin: NEW PRESCRIPTIONS: MACROBID 100 MG BID FOR 5 DAYS (CALLED TO [facility]ED[facility]) DISCONTINUED MEDICATIONS: NONE DIET INSTRUCTIONS: CONSISTENT CARBOHYDRATES DRINK ADEQUATE LIQUIDS (WATER) ACTIVITY: GRADUALLY RESUME TOLERATED SMOKING: NOT APPLICABLE DISEASE SPECIFIC EDUCATION: NEW MEDICATION RESUMING METFORMIN ON THE APPOINTMENTS HYDRATION HOSPITAL COURSE: This is an 85-year-old white female who presented to the emergency room with symptoms of a urinary tract infection. Urine was abnormal with small amounts of blood and leukocytes. Urine culture was done. CT of the abdomen and pelvis was done which showed left hydronephrosis although this was not a new finding with possible UPJ obstruction. Again this is also not a new finding. Along with multiple bilateral renal cysts, the patient had previously seen Dr. Purvis, last seen in October of 2020 and was supposed to followup in one month however she did not for the same hydronephrosis. She had elevated renal function on admission indicating urinary tract infection and mild dehydration. She was admitted, placed on IV fluids NS at 75 times 2L. She does have a history of atrial fibrillation. INR was therapeutic on admission and remained so. Today on day of discharge it is 1.86, hemoglobin remained stable today is 11.2. Urine culture ended up showing no acute growth. Vital signs remained stable. She has been afebrile, eating 75 to 100%, states she was feeling much better yesterday. She had been up walking around the room. She was initially placed on Zosyn IV q.6hr for urinary tract infection, possible pyelonephritis. This will be discontinued today. She will go home on Macrobid 100 mg b.i.d. just for 5 days. She is to resume her Coumadin. Digoxin level was done on admission which again is normal. All of her medications were continued. She is encouraged to increase fluids. We have called to make her an appointment for Dr. Purvis. Dr. Purvis's office is to call her with the appointment date and time. We have instructed the patient to followup with Dr. Purvis. She will see us in the office next week. Today, the day of discharge, BUN 22 which is much better, creatinine 1.15. Again, she is eating well, feeling much better. Hemoglobin stable at 11.2. We will followup with her in the office next week. She is discharged in stable condition. TIME SPENT: More than 60 minutes. JENNIFER
== END 2021-04-28 13:34 | disposition home or self-care (01) | DRG 313 ==
LOC: ED 07:00 → MEDSURG A 10:26
PROVIDERS: ADMIT Internal Medicine; ATTEND Internal Medicine
DX: R53.83 Other fatigue; N13.30 Unspecified hydronephrosis; R53.1 Weakness; E78.5 Hyperlipidemia, unspecified; R07.9 Chest pain, unspecified; M54.9 Dorsalgia, unspecified; N28.1 Cyst of kidney, acquired; E11.9 Type 2 diabetes mellitus without complications; I10 Essential (primary) hypertension; R50.9 Fever, unspecified; R06.02 Shortness of breath; Z20.822 Contact with and (suspected) exposure to COVID-19; Z79.01 Long term (current) use of anticoagulants; M19.90 Unspecified osteoarthritis, unspecified site; R30.0 Dysuria; E86.0 Dehydration; R30.9 Painful micturition, unspecified; I48.91 Unspecified atrial fibrillation; E03.9 Hypothyroidism, unspecified

== ENCOUNTER 2022-10-12 11:44 | Inpatient (IN) ==
[2022-10-12 12:45] LABS: SARS COV-2 RNA RAPID NAAT NEGATIVE (NEGATIVE)
[2022-10-12] MEDS ORDERED: ATROPINE SULFATE PFS IVP PRN (14:34)
[2022-10-12] MEDS ORDERED: TYLENOL PO PRN (14:34)
[2022-10-12] MEDS ORDERED: NITROSTAT SL PRN (14:34)
[2022-10-12 14:53] VITALS: BMI 22.7
[2022-10-12 14:54] LABS: ABG O2 HGB 93.3 % (95-100); ABG PH 7.48 (7.35-7.45); BEecf 7.8 (-2.0-3.0); COHb 2.5 (0.5-1.5); HCO3 31.3 (21-28); TCO2 32.6 (19-24); sO2 95.6 % (94-98); tHb 11.4 g/dl (11.7-17.4)
[2022-10-12] MEDS ORDERED: DEXTROSE 5%-1/2NS IV SOLUTION 1,000 ML IV SCH (15:00)
[2022-10-12 15:05] LABS: BASOPHILS % (AUTO) 0.4 % (0.0-3.0); EOSINOPHILS # (AUTO) 0.1 K/ul (0.0-0.7); EOSINOPHILS % (AUTO) 1.1 % (0.0-7.0); HEMATOCRIT 33.2 % (37.0-47.0); IMMATURE GRANULOCYTE # (AUTO) 0.1 (0.0-1.0); IMMATURE GRANULOCYTE % (AUTO) 0.6 % (0.0-5.0); LYMPHOCYTES # (AUTO) 1.5 K/uL (0.60-3.4); MEAN CORPUSCULAR HEMOGLOBIN 32.4 pg (27.0-31.0); MEAN CORPUSCULAR HGB CONC 33.1 (31.8-35.4); MEAN CORPUSCULAR VOLUME 97.9 fl (81.0-99.0); MONOCYTES # (AUTO) 1.2 K/uL (0.4-2.0); MONOCYTES % (AUTO) 11.7 (0-10); NEUTROPHILS # (AUTO) 7.2 K/ul (2.0-6.9); NEUTROPHILS % (AUTO) 71.2 % (42.2-75.2); PLATELET COUNT 166 10^3/uL (140-440); RDW COEFFICIENT OF VARIATION 13.2 % (11.6-14.8); RED BLOOD COUNT 3.39 10^6/ul (4.20-5.40); WHITE BLOOD COUNT 10.12 K/ul (4.6-10.2)
[2022-10-12 15:19] LABS: ALBUMIN 3.9 g/dL (3.5-5.0); BILIRUBIN,TOTAL 0.9 mg/dL (0.2-1.3); CALCIUM 8.8 mg/dL (8.4-10.2); CREATININE 1.3 mg/dL (0.60-1.30); POTASSIUM 3.9 mmol/L (3.5-5.1); TOTAL PROTEIN 7.1 g/dL (6.3-8.2)
[2022-10-12] MEDS: DEXTROSE 5%-1/2NS IV SOLUTION 1,000 ML IV SCH ×2 (15:42→23:31)
--- NOTE | 2022-10-12 15:58 | DI ---
EXAM: Frontal view of the chest. HISTORY: Shortness of breath COMPARISON: Chest radiograph 07/02/2022 FINDINGS: Atherosclerotic calcifications of the aorta. Unchanged cardiomegaly. Scattered calcified granulomas. Hyperexpanded lungs. No acute airspace consolidation. No visible pleural effusion or pneumothorax. No acute osseous abnormality. Multilevel spondylosis. IMPRESSION: No acute process. Hyperexpanded lungs suggesting obstructive pulmonary disease and/or emphysema. Cardiomegaly. Atherosclerosis.
[2022-10-12] MEDS ORDERED: NEURONTIN PO PRN (16:22)
[2022-10-12] MEDS ORDERED: ZANAFLEX PO PRN (16:22)
[2022-10-12] MEDS ORDERED: CARAFATE PO PRN (16:22)
[2022-10-12 16:35] LABS: TROPONIN I 0.07 ng/ml (0.0000-0.120)
[2022-10-12 16:54] LABS: THYROID STIMULATING HORMONE 0.735 uIU/L (0.465-4.68)
[2022-10-12] MEDS ORDERED: COUMADIN PO SCH (17:00)
[2022-10-12 17:24] LABS: BILIRUBIN,URINE Negative (NEGATIVE); CLARITY,URINE Clear (CLEAR); COLOR,URINE Yellow (YELLOW); GLUCOSE, URINE (UA) Negative (NEGATIVE); KETONES,URINE Negative (NEGATIVE); LEUKOCYTE ESTERASE ,URINE Negative (NEGATIVE); NITRITE,URINE Negative (NEGATIVE); PROTEIN,URINE Negative (NEGATIVE); URINE, BLOOD Negative (NEGATIVE); UROBILINOGEN,URINE 0.2 (0.2)
[2022-10-12] MEDS: ZOFRAN 4 MG/2 ML IVP PRN (17:40)
[2022-10-12] MEDS: NORCO 10-325 PO PRN (20:42)
[2022-10-12] MEDS: GLUCOPHAGE PO SCH (20:42)
[2022-10-12] MEDS: JANUVIA PO SCH (20:42)
[2022-10-12] MEDS: ZOCOR PO SCH (20:42)
[2022-10-12] MEDS: ZYLOPRIM PO SCH (20:43)
[2022-10-12] MEDS: DESYREL PO PRN (20:43)
[2022-10-12 23:03] LABS: CREATINE KINASE 42.7 U/L (30-135)
[2022-10-12 23:16] LABS: TROPONIN I 0.08 ng/ml (0.0000-0.120)
[2022-10-13 05:02] LABS: BASOPHILS % (AUTO) 0.4 % (0.0-3.0); EOSINOPHILS # (AUTO) 0.3 K/ul (0.0-0.7); EOSINOPHILS % (AUTO) 2.9 % (0.0-7.0); HEMATOCRIT 31.3 % (37.0-47.0); HEMOGLOBIN 10.2 g/dl (12.0-16.0); IMMATURE GRANULOCYTE % (AUTO) 0.4 % (0.0-5.0); LYMPHOCYTES # (AUTO) 1.5 K/uL (0.60-3.4); LYMPHOCYTES % (AUTO) 16.6 (10.0-50.0); MEAN CORPUSCULAR HEMOGLOBIN 32.1 pg (27.0-31.0); MEAN CORPUSCULAR HGB CONC 32.6 (31.8-35.4); MEAN CORPUSCULAR VOLUME 98.4 fl (81.0-99.0); MONOCYTES # (AUTO) 1.2 K/uL (0.4-2.0); MONOCYTES % (AUTO) 12.5 (0-10); NEUTROPHILS # (AUTO) 6.2 K/ul (2.0-6.9); NEUTROPHILS % (AUTO) 67.2 % (42.2-75.2); PLATELET COUNT 154 10^3/uL (140-440); RDW COEFFICIENT OF VARIATION 13.3 % (11.6-14.8); RED BLOOD COUNT 3.18 10^6/ul (4.20-5.40); WHITE BLOOD COUNT 9.29 K/ul (4.6-10.2)
[2022-10-13 05:14] LABS: PROTHROMBIN TIME 16.7 SEC (9.3-11.0)
[2022-10-13 05:16] LABS: ALANINE AMINOTRANSFERASE 11.4 U/L (0-35); ALBUMIN 3.38 g/dL (3.5-5.0); ALKALINE PHOSPHATASE 57.2 U/L (53-141); ASPARTATE AMINO TRANSFERASE 20.6 U/L (14-36); BILIRUBIN,TOTAL 0.81 mg/dL (0.2-1.3); BLOOD UREA NITROGEN 25.5 mg/dL (7-17); CALCIUM 8.3 mg/dL (8.4-10.2); CARBON DIOXIDE 29.1 mmol/L (22-30.0); CHLORIDE 100.6 mmol/L (98-107); CREATININE 1.34 mg/dL (0.60-1.30); GLUCOSE 122.9 mg/dL (74-106); POTASSIUM 3.59 mmol/L (3.5-5.1); SODIUM 135.5 mmol/L (134.5-145); TOTAL PROTEIN 6.38 g/dL (6.3-8.2)
[2022-10-13] MEDS: PRILOSEC PO SCH (05:32)
[2022-10-13] MEDS: LASIX TAB PO SCH (05:32)
[2022-10-13] MEDS: SYNTHROID PO SCH (05:32)
[2022-10-13] MEDS: NORCO 10-325 PO PRN ×2 (05:36→20:52)
[2022-10-13] MEDS: DEXTROSE 5%-1/2NS IV SOLUTION 1,000 ML IV SCH ×3 (07:38→21:13)
[2022-10-13] MEDS ORDERED: GLUCOPHAGE PO SCH (08:30)
[2022-10-13] MEDS ORDERED: JANUVIA PO SCH (08:30)
[2022-10-13] MEDS: PREDNISONE PO SCH (08:34)
[2022-10-13] MEDS: ZYLOPRIM PO SCH ×2 (08:34→20:52)
[2022-10-13] MEDS: SINGULAIR PO SCH (08:35)
[2022-10-13] MEDS: CELEXA PO SCH (08:35)
[2022-10-13] MEDS: COZAAR PO SCH (08:35)
[2022-10-13] MEDS: K-DUR PO SCH (08:36)
[2022-10-13] MEDS: GLUCOPHAGE PO SCH ×2 (08:36→20:54)
[2022-10-13] MEDS: PLAQUENIL PO SCH (08:59)
[2022-10-13] MEDS ORDERED: SITAGLIPTIN PHOS METFORMIN PO SCH (09:00)
[2022-10-13] MEDS ORDERED: LANOXIN PO SCH (09:00)
[2022-10-13] MEDS ORDERED: MICRO-K CAP PO SCH (09:00)
[2022-10-13] MEDS ORDERED: COUMADIN PO ONE (10:30)
--- NOTE | 2022-10-13 11:33 | RS.OTINEVL ---
Subjective - Patient information Date of Evaluation: 10/13/22 Date of Arrival on Unit: 10/12/22 Diagnosis: Acute gastroenteritis, dehydration PRECAUTIONS: Weakness Usual Living Arrangement: With Spouse Living Arrangement Comments: lives at home with spouse (he has dementia). Medical History: Hypertension, Diabetes, Arthritis Medical History Comments:: neuropathy in B feet. Surgical History: Cholecystectomy, Tonsillectomy Surgical History Comments:: Gall bladder Medications: Refer to chart. Subjective Information/ Patient Comments:: "I didn't think I was old until all of these things have started happening to me. I had a cut on my arm from the safe. Then I had shingles, then I had covid, and hit my head, and now my stomach." - Level of function Prior to this admission, the patient could do the following:: Independent Selfcare, Independent ADL's, Independent Ambulation, Drive, Participated in Social Activities Outside home Abilities prior to this admission: Pt takes care of her because he has dementia. Pt uses a cane to walk outside. Current Level of Function: Partially Dependent Current Equipment Used at Home: black straight cane, BSC, raised toilet seat Pain Assessment - Pain Pain Score: 4 Pain Location Body Site: Back Pain Aggravating Factors: Changing Position, Standing, Walking Pain Alleviating Factors: Medication (Pt goes to pain management for her back.) Interventions - Objective Patient Orientation: Person, Place, Time, Situation Current Interventions: IV's, Telemetry Observation: Pt walked better with the RW. Pt was not steady with the cane. Pt completed personal hygiene independently and clothing management CGA. Pt brushed teeth at the sink CGA. Interventions - ROM Right Upper Extremity AROM: WFL's Left Upper Extremity AROM: WFL's - Strength Right Upper Extremity Strength: Mild Weakness Left Upper Extremity Strength: Mild Weakness - Sensation Right Upper Extremity Sensation: Intact/Normal Left Upper Extremity Sensation: Intact/Normal Balance - Sitting Balance Static Sitting Balance: Good Dynamic Sitting Balance: Good - Standing Balance Static Standing Balance: Poor Dynamic Standing Balance: Poor ADL Skills - Self Feeding Self Feeding: Independent - Grooming Grooming Set-up: Standing - Bathing Bathing UE: Independent Bathing LE: CGA Bathing Set-up: Shower - Dressing Dressing UE: Independent Dressing LE: Min Assist - Toilet Management Toilet Hygiene: CGA Toilet Clothing Management: Independent Functional Mobility - Bed Mobility Rolling R/L: Independent Scooting: Independent Supine to Sit: Independent Sit to Supine: Independent - Transfers Sit to Stand: CGA Stand to Sit: CGA Stand Pivot Transfers: CGA - Ambulation Weight Bearing Status: FWB Assistive Device Used: Rolling Walker Assistance needed with Ambulation: Min Assist - Safety Awareness Safety Awareness: Fair COLT INDEX SCORE: . Additional Treatment Performed - Additional units charged ADL: 15 - Time with patient Length of Evaluation: 18 Total treatment time: 33 Activities Do you enjoy playing games?: Yes Would you be interested in leaving your room for activities?: Yes Would you enjoy group activities?: Yes Do you have difficulty with your vision?: Yes Patient Interests:: Watching Television, Visiting/Socializing Patient Education Patient Education: Education of diagnosis, Home Exercise Program, Education of Plan of Care Teaching Recipient: Patient Teaching Methods: Discussion Assessment Problem List:: Decreased level of function, Decreased safety/Risk of falls, Pain limits previous level of function Rehab Potential: Good Further Therapy Indicated?: Yes Evaluation Complexity: HISTORY: Medium, EXAM OF BODY SYSTEMS: Medium, CLINICAL DECISION MAKING: Medium Patient's Goal(s): To be able to go home tomorrow and take care of her . Short Term Goals - Goals GOAL 1: Pt to increase BUE strength to 4/5. Goal to be met by: 10/16/22 GOAL 2: Pt to be CGA with toilet transfers using RW. Goal to be met by: 10/16/22 GOAL 3: Pt to increase dyn. std. bal. to Fair+. Goal to be met by: 10/16/22 Pickle Processor Goals GOAL 1: Pt to increase BUE strength to 5/5. Goal to be met by: 09/19/22 GOAL 2: Pt to be (I) with toileting using her AD. Goal to be met by: 10/20/22 GOAL 3: Pt to increase dyn. std. bal. to G-. Goal to be met by: 10/20/22 Plan Plan of Care: Therapeutic EX, Therapeutic Activity, Self-Care/Home Management Frequency of Treatment: 1-2 X day, as tolerated Duration of Treatment: 1 Week Anticipated Discharge Destination: [facility] Treatment Diagnosis (ICD 10 Codes): Weakness R53.1, Z74.1 Need for assistance with personal care, U07.1 History of Covid Has the Physician been added for Co-signature?: Yes
--- NOTE | 2022-10-13 12:41 | HP ---
DATE OF SERVICE: 10/12/22 REASON FOR HOSPITALIZATION/HISTORY OF PRESENT ILLNESS: Started with cough. Itching/vomiting times three days. Diarrhea not really. No abdominal pain. No appetite. PAST MEDICAL HISTORY: DJD of spine Hypertension Sciatica Chronic kidney disease stage II Atrial fibrillation ELISE Diabetes Mellitus type II Neuropathy Hypothyroidism Dyslipidemia Diverticulosis Gout PAST SURGICAL HISTORY: Hysterectomy Gallbladder Thyroid Tonsils REVIEW OF SYSTEMS: CONSTITUTIONAL: No fever, no fatigue. HEENT: No sinus drainage, no sore throat. RESPIRATORY: No cough, no congestion. CARDIOVASCULAR: No atypical chest pain for coronary artery disease. No angina, CHF symptoms, palpitations. Shortness of breath, maybe GASTROINTESTINAL: No melena or abdominal pain. No GERD. GENITOURINARY: No hematuria, no prostatism, no polyuria. PROGRAM RESEARCH SPECIALIST: No blackout,Dizziness, no headache, no double vision. Difficulty walking. MUSCULOSKELETAL: No osteoarthritis pain, no joint swelling. ENDOCRINE: Weight loss; 3 pounds in 3 weeks., no weight gain. SKIN: Dry, no rash. PSYCHIATRIC: Not anxious, no depression, no suicidal thoughts, no homicidal thoughts. SOCIAL HISTORY: Marital Status: . Alcohol Usage: No. Tobacco Usage: No. FAMILY HISTORY: Father Mother Sister 1/2 sister MEDICATIONS: Celexa 20mg 1 1/2 tablet daily Hydrocodone 10/325mg TID PRN Coumadin 3mg Q daily Cozaar 100mg Q daily Lanoxin 250mcg 1/2 tablet daily Neurontin 300mg BID PRN Simvastatin 20mg HS Lasix 40mg Q daily Potassium Chloride 20meq Q daily Carafate 1gram QID PRN Singulair 10mg Q daily Synthroid 100mcg Q daily Omeprazole 20mg Q daily Hydrochloroquine 200mg Metformin 500mg BID Zanaflex 2mg PO BID PRN Trazodone 50mg Januvia 100mg daily Janumet 50/500mg daily Allopurinol BID ALLERGIES: No Known allergies PHYSICAL EXAMINATION: V/S: Pulse 83, blood pressure 136/68, temperature 97.7, pulse ox 98.8% GENERAL APPEARANCE: Oriented times three. HEENT: Dry skin. Skin turgor poor. NECK: No JVP, no bruits. RESPIRATORY: Lungs are clear. CARDIOVASCULAR: S1, S2, no S3, no murmur. No cyanosis, clubbing. No ascites. GI/ABDOMEN: No tenderness. Bowel sounds are active. EXTREMITIES: edema, pulses +1, equal. PROGRAM RESEARCH SPECIALIST: Deep tendon reflexes, sensory, motor and gait all normal. RECTAL: Dr. Dorantes 2014/PELVIC: Hysterectomy ASSESSMENT: 1. Acute gastroenteritis 2. Dehydration 3. History of supra-orbital hematoma, resolved with fall 4. COVID positive 07/06 5. History of atrial fibrillation chronic on Coumadin 6. Diabetes Mellitus type II 7. Hypertension 8. Dyslipidemia 9. Hypothyroidism 10.Diverticulosis 11.Depression 12.Neuropathy 13.Status post cholecystectomy 14.Status post Hysterectomy PLAN: 1. Routine telemetry orders 2. CBC and CMP now and daily 3. 1000cc D5 1/2 normal saline 8 hourly as soon as possible 4. Continue all home medications 5. Lanoxin level in AM 6. ABG today 7. T4 TSH in AM 8. Zofran 4mg IV now and Q 6 hours PRN 9. INR daily 10.Urinalysis 11.Chest x-rya TIME SPENT: More than 70 minutes. MTDD
--- NOTE | 2022-10-13 13:48 | RS.PTINEVL ---
Subjective - Patient information Date of Evaluation: 10/13/22 (2235) Date of Arrival on Unit: 10/12/22 Admitted From:: Home Diagnosis: gastroenteritis, dehydration, weakness Usual Living Arrangement: With Spouse Living Arrangement Comments: pt lives with spouse whom has dementia and she is primary caregiver. Home Environment: House, Stairs (few), Rail Medical History: Hypertension, Diabetes, Arthritis Medical History Comments:: hiatal hernia, GERD, diverticulosis, hypothyroidism, skin CA Surgical History: Cholecystectomy, Hysterectomy Surgical History Comments:: appey Medications: see chart Subjective Information/ Patient Comments:: pt states that she feels weak since having COVID 3 months ago and then having stomach bug. pt is worried about her who is home alone and has dementia. - Level of function Prior to this admission, the patient could do the following:: Independent Selfcare, Independent ADL's, Independent Ambulation, Drive, Participated in Social Activities Outside home Abilities prior to this admission: pt amb independently without AD, only used cane the last couple of days. Current Level of Function: Partially Dependent Current Equipment Used at Home: black straight cane, BSC, raised toilet seat Interventions - Objective Patient Orientation: Person, Place, Time, Situation Current Interventions: IV's, Telemetry Observation: pt with bruising noted to L eye from previous fall a few months ago. Range of Motion - ROM Right Upper Extremity AROM: WFL's Left Upper Extremity AROM: WFL's Right Lower Extremity AROM: WFL's Left Lower Extremity AROM: WFL's Muscle Strength - Muscle Strength Right Upper Extremity Strength: Mild Weakness (grossly 4/5) Left Upper Extremity Strength: Mild Weakness (grossly 4/5) Right Lower Extremity Strength: Mild Weakness (hip flex 4/5, knee flex/ext 4/5 , ankle DF/PF 4/5) Left Lower Extremity Strength: Mild Weakness (hip flex 4/5, knee flex/ext 4/5 , ankle DF/PF 4/5) Sensation - Sensation Right Upper Extremity Sensation: Intact/Normal Left Upper Extremity Sensation: Intact/Normal Right Lower Extremity Sensation: Intact/Normal Left Lower Extremity Sensation: Intact/Normal Palpation Palpation Findings: None/Normal Balance - Sitting Balance and Reactions Static Sitting Balance: Good Dynamic Sitting Balance: Fair - Standing Balance and Reactions Static Standing Balance: Poor Dynamic Standing Balance: Poor Standing Equilibrium Reactions: Delayed Left, Delayed Right Standing Protective Reactions: Delayed Left, Delayed Right Functional Mobility - Bed Mobility Rolling R/L: Supervision Supine to Sit: Supervision Sit to Supine: Not Tested - Transfers Sit to Stand: CGA Stand to Sit: CGA Comments:: on/off commode with CGA - Safety Awareness Safety Awareness: Fair COLT INDEX SCORE: n/a Ambulation - Ambulation Assistive Device Used: Rolling Walker Orthotic/Prosthetic Device: No Distance: 100ft Assistance needed with Ambulation: CGA Quality of Ambulation: pt amb 20ft with cane with CGA with increased lat sway. pt then amb with rwx with improved gait sequencing and decreased lat sway. Gait Deviations: Forward posture, Short stride, Deviates from path Factors Affecting Ambulation: Decreased Balance, Weakness, Decreased Coordination, Limited Endurance Treatment time - Time with patient Length of Evaluation: 19 Total treatment time: 36 Patient Education - Education Patient Education: Home Exercise Program, Education of Plan of Care Teaching Recipient: Patient Teaching Methods: Discussion Assessment - Assessment Problem List:: Decreased level of function, Requires training/education, Decreased safety/Risk of falls, Weakness Rehab Potential: Good Further Therapy Indicated?: Yes Candidate for Swing Bed for Therapy Services?: Feel pt may not be a candidate due to higher level of function Evaluation Complexity: HISTORY: Medium, EXAM OF BODY SYSTEMS: Medium, CLINICAL PRESENTATION: Medium, CLINICAL DECISION MAKING: Medium Patient's Goal(s): Get stronger and get back home. Short Term Goals GOAL #1: pt transfer sup to/from sit independently Goal to be met by: 10/16/22 GOAL #2: Sit to/from stand SBA Goal to be met by: 10/16/22 GOAL #3: pt amb with rwx 100ft with CGA to SBA no LOB Goal to be met by: 10/16/22 GOAL #4: Improve BLE strength 4+/5 Goal to be met by: 10/16/22 GOAL #5: Independent with rolling and scooting in bed Goal to be met by: 10/16/22 Canvas Cutter Hand Goals GOAL #1: Transfer sit to/from stand independently Goal to be met by: 10/18/22 GOAL #2: pt amb functional distances with AAD with SBA Goal to be met by: 10/18/22 GOAL #3: Improve dyn stand balance fair Goal to be met by: 10/18/22 Plan Plan of Care: Therapeutic EX, Therapeutic Activity Other:: gait training Frequency of Treatment: 1-2 X day, as tolerated Duration of Treatment: 5-6 days Anticipated Discharge Destination: Home Treatment Diagnosis (ICD 10 Codes): impaired balance R 26.81. difficulty walking R 26.2. weakness M62.81 Has the Physician been added for Co-signature?: Yes
[2022-10-13] MEDS: LOTRISONE 45 GM TP SCH ×2 (16:03→21:00)
[2022-10-13] MEDS: ZOFRAN 4 MG/2 ML IVP PRN (17:20)
[2022-10-13] MEDS: ZOCOR PO SCH (20:52)
[2022-10-13] MEDS: JANUVIA PO SCH (20:54)
[2022-10-13] MEDS: DESYREL PO PRN (23:43)
[2022-10-14 04:36] LABS: BASOPHILS % (AUTO) 0.4 % (0.0-3.0); EOSINOPHILS # (AUTO) 0.3 K/ul (0.0-0.7); EOSINOPHILS % (AUTO) 3.5 % (0.0-7.0); HEMATOCRIT 28.9 % (37.0-47.0); HEMOGLOBIN 9.6 g/dl (12.0-16.0); IMMATURE GRANULOCYTE % (AUTO) 0.5 % (0.0-5.0); LYMPHOCYTES # (AUTO) 1.7 K/uL (0.60-3.4); LYMPHOCYTES % (AUTO) 21.2 (10.0-50.0); MEAN CORPUSCULAR HEMOGLOBIN 32.7 pg (27.0-31.0); MEAN CORPUSCULAR HGB CONC 33.2 (31.8-35.4); MEAN CORPUSCULAR VOLUME 98.3 fl (81.0-99.0); MONOCYTES % (AUTO) 12.1 (0-10); NEUTROPHILS % (AUTO) 62.3 % (42.2-75.2); PLATELET COUNT 137 10^3/uL (140-440); RDW COEFFICIENT OF VARIATION 13.4 % (11.6-14.8); RED BLOOD COUNT 2.94 10^6/ul (4.20-5.40); WHITE BLOOD COUNT 7.94 K/ul (4.6-10.2)
[2022-10-14 04:44] LABS: ALANINE AMINOTRANSFERASE 12.8 U/L (0-35); ALBUMIN 3.38 g/dL (3.5-5.0); ALKALINE PHOSPHATASE 75.8 U/L (53-141); ASPARTATE AMINO TRANSFERASE 23.1 U/L (14-36); BILIRUBIN,TOTAL 0.59 mg/dL (0.2-1.3); BLOOD UREA NITROGEN 26.8 mg/dL (7-17); CALCIUM 8.24 mg/dL (8.4-10.2); CARBON DIOXIDE 29.1 mmol/L (22-30.0); CHLORIDE 102.9 mmol/L (98-107); CREATININE 1.55 mg/dL (0.60-1.30); POTASSIUM 3.81 mmol/L (3.5-5.1); SODIUM 135.5 mmol/L (134.5-145); TOTAL PROTEIN 6.29 g/dL (6.3-8.2)
[2022-10-14 05:09] LABS: PROTHROMBIN TIME 17.5 SEC (9.3-11.0)
[2022-10-14 06:17] VITALS: BP 124/62; TEMP 97.7
[2022-10-14] MEDS: LASIX TAB PO SCH (06:27)
[2022-10-14] MEDS: SYNTHROID PO SCH (06:27)
[2022-10-14] MEDS: PRILOSEC PO SCH (06:27)
[2022-10-14] MEDS: K-DUR PO SCH (08:16)
[2022-10-14] MEDS: PLAQUENIL PO SCH (08:16)
[2022-10-14] MEDS: CELEXA PO SCH (08:16)
[2022-10-14] MEDS: SINGULAIR PO SCH (08:17)
[2022-10-14] MEDS: GLUCOPHAGE PO SCH (08:17)
[2022-10-14] MEDS: PREDNISONE PO SCH (08:17)
[2022-10-14] MEDS: ZYLOPRIM PO SCH (08:17)
[2022-10-14] MEDS: COZAAR PO SCH (08:17)
[2022-10-14] MEDS: LOTRISONE 45 GM TP SCH (08:18)
[2022-10-14] MEDS: DEXTROSE 5%-1/2NS IV SOLUTION 1,000 ML IV SCH (10:19)
--- NOTE | 2022-10-17 15:29 | PN ---
DATE OF SERVICE: 10/13/22 SUBJECTIVE: White female hospitalized with acute gastroenteritis, dehydration. Her condition seems to have improved. Patient's status has improved. REVIEW OF SYSTEMS: CONSTITUTIONAL: No night sweats. No fatigue, malaise, lethargy. No fever or chills. HEENT: Eyes: No visual changes. No eye pain. No eye discharge. ENT: No runny nose. No epistaxis. No sinus pain. No sore throat. No odynophagia. No congestion. RESPIRATORY: No cough, no congestion. No hemoptysis. No shortness of breath. CARDIOVASCULAR: No angina symptoms. No CHF symptoms. No atypical chest pain for CAD. No palpitations. No PND. No orthopnea. GASTROINTESTINAL: No abdominal pain. No nausea or vomiting. No diarrhea or constipation. No hematemesis. No hematochezia.Appetite has improved. GENITOURINARY: No urgency. No frequency. No dysuria. No hematuria. No obstructive symptoms. No discharge. No pain. No significant abnormal bleeding. MUSCULOSKELETAL: No musculoskeletal pain; no joint swelling. NEUROLOGICAL: No headache. No neck pain. No syncope. No seizures. No dizziness. PSYCHIATRIC: Not anxious. No depression. No suicidal thoughts. No homicidal thoughts. SKIN: No rash. No lesions. No wounds. ENDOCRINE: No unexplained weight loss. No weight gain. HEMATOLOGIC/LYMPHATIC: No anemia. No purpura. No petechiae. No prolonged or excessive bleeding. No palpable lymph nodes. PHYSICAL EXAMINATION: GENERAL: The patient is , lying/sitting in bed in no distress. VITAL SIGNS: Temperature 97.7, pulse 53, respiratory rate 18, blood pressure 140/50, pulse ox 96%. HEENT: Head normocephalic, atraumatic. Eyes: Extraocular muscles are intact. Pupils are equal, round and reactive to light and accommodation. Ears: No lesions. Nose appeared normal. Throat: No exudate or erythema. NECK: Supple. No JVD, no carotid bruit. No lymphadenopathy or thyromegaly. LUNGS: Decreased breath sounds. Percussion note normal. Chest symmetrical. HEART: S1, S2, no S3. No murmurs. No cyanosis or clubbing. No ascites. Pulses: Dorsalis pedis and posterior tibial pulses +1 to +2 bilaterally. ABDOMEN: Soft. Nontender. Bowel sounds active. No CVA tenderness. No mass felt. EXTREMITIES: No pitting. Full range of motion of all extremities, equal. NEUROLOGIC: No focal deficit. Cranial nerves II through XII are grossly intact. No headache. No double vision. SKIN: Not dry. Intact. Turgor - normal. LYMPHATIC: No palpable lymph nodes/no lymphedema. MUSCULOSKELETAL: Normal joints with no swelling. Muscle tone is normal. LABS: Hemoglobin 10.2, hematocrit 31, WBC 9,000, creatinine 1.34, BUN 25, potassium 3.6, glucose 122. ASSESSMENT: 1. Acute gastroenteritis with dehydration, seems to be resolving 2. Dig toxicity, initial dig level was 3 Patient's rhythm is a lot better, STT wave changes have been normalizing the way she usually has. Patient is stable. TIME SPENT: More than 30 minutes. Plan and coordination of the patient's care discussed in the presence of nurse. JENNIFER
--- NOTE | 2022-10-17 15:48 | PN ---
DATE OF SERVICE: 10/14/22 SUBJECTIVE: 87 year old white female hospitalized wt acute gastroenteritis, dehydration. The patient's condition has resolved. She is feeling better. She is up and about. REVIEW OF SYSTEMS: CONSTITUTIONAL: No night sweats. No fatigue, malaise, lethargy. No fever or chills. HEENT: Eyes: No visual changes. No eye pain. No eye discharge. ENT: No runny nose. No epistaxis. No sinus pain. No sore throat. No odynophagia. No congestion. RESPIRATORY: No cough, no congestion. No hemoptysis. No shortness of breath. CARDIOVASCULAR: No angina symptoms. No CHF symptoms. No atypical chest pain for CAD. No palpitations. No PND. No orthopnea. GASTROINTESTINAL: No abdominal pain. No nausea or vomiting. No diarrhea or constipation. No hematemesis. No hematochezia. Appetite seems to have improved. GENITOURINARY: No urgency. No frequency. No dysuria. No hematuria. No obstructive symptoms. No discharge. No pain. No significant abnormal bleeding. MUSCULOSKELETAL: No musculoskeletal pain; no joint swelling. NEUROLOGICAL: No headache. No neck pain. No syncope. No seizures. No dizziness. PSYCHIATRIC: Not anxious. No depression. No suicidal thoughts. No homicidal thoughts. SKIN: No rash. No lesions. No wounds. ENDOCRINE: No unexplained weight loss. No weight gain. HEMATOLOGIC/LYMPHATIC: No anemia. No purpura. No petechiae. No prolonged or excessive bleeding. No palpable lymph nodes. PHYSICAL EXAMINATION: GENERAL: The patient is in no distress. VITAL SIGNS: Temperature 97.7, pulse 50, respiratory rate 16, blood pressure 144/62, pulse ox 96% HEENT: Head normocephalic, atraumatic. Eyes: Extraocular muscles are intact. Pupils are equal, round and reactive to light and accommodation. Ears: No lesions. Nose appeared normal. Throat: No exudate or erythema. NECK: Supple. No JVD, no carotid bruit. No lymphadenopathy or thyromegaly. LUNGS: Decreased breath sounds. Percussion note normal. Chest symmetrical. HEART: S1, S2, no S3. No murmurs. No cyanosis or clubbing. No ascites. Pulses: Dorsalis pedis and posterior tibial pulses +1 to +2 bilaterally. ABDOMEN: Soft. Nontender. Bowel sounds active. No CVA tenderness. No mass felt. EXTREMITIES: No edema. Full range of motion of all extremities, equal. NEUROLOGIC: No focal deficit. Cranial nerves II through XII are grossly intact. No headache. No double vision. SKIN: Not dry. Intact. Turgor - normal. LYMPHATIC: No palpable lymph nodes/no lymphedema. MUSCULOSKELETAL: Normal joints with no swelling. Muscle tone is normal. She wants to go home. ASSESSMENT: 1. Acute gastroenteritis, seems to have resolved 2. Dehydration, seems to have resolved 3. Digoxin is on hold, this is the third day Patient has recovered practically from her symptoms which could be partly related to Lanoxin level. PLAN: 1. Discharge patient home 2. Lovenox 3. Patient will be seen in October 4. Patient is to discontinue Metformin and Janumet 5. Continue the rest of medications as before TIME SPENT: More than 30 minutes. Plan and coordination of the patient's care discussed in the presence of nurse. JENNIFER
--- NOTE | 2022-10-17 16:08 | DS ---
DATE OF SERVICE: 10/14/22 FINAL DIAGNOSIS: 1. Acute gastroenteritis with dehydration 2. Elevated Lanoxin level with some symptoms contributing towards nausea 4..History of supra-orbital hematoma, resolved with fall 5..COVID positive 07/06 6. History of atrial fibrillation chronic on Coumadin 7. Diabetes Mellitus type II 8. Hypertension 9. Dyslipidemia 10 Hypothyroidism 11.Diverticulosis 12.Depression 13.Neuropathy 14.Status post cholecystectomy 15.Status post Hysterectomy LABS ON DISCHARGE: Hemoglobin 9.6, hematocrit 28, WBC 7,900, differential creatinine 1.5, BUN 26, potassium 3.8, glucose 128, INR today was reported as 1.72 but patient has been forgetting to take Coumadin at times, lately she has done that. She has been demanding she was sick for a couple of days. HOSPITAL COURSE: 87 year old white female was hospitalized and seen in the office with acute gastroenteritis with enteritis type of symptoms for three to four days duration. The patient looked weak. She was unable to walk without support. Skin turgor was poor. The patient was given 125 cc/hr initially for the first 24 hours. After that it was reduced to 70 cc/hr. The patient has been on Lanoxin 0.125 daily. Lanoxin was held and advised not to take Lanoxin until she is seen in the office and further instructions will be given. The patient also had not taken her Coumadin. She was given an extra dose of Coumadin and INR was 1.7 at the time of discharge. She was advised to continue the same dose as before. The patient was taken off Metformin and Janumet for borderline serum creatinine. This patient's condition has improved. She is up and about. The patient is very anxious because her , who is 89 years old living by himself at home. The patient's condition is stable. Cardiovascular status is stable. CONDITION AT TIME OF DISCHARGE: Stable. 10/12/22 level 5 10/13/22 intermediate 10/14/22 discharge TIME SPENT: More than 60 minutes. JENNIFER
== END 2022-10-14 14:30 | disposition home or self-care (01) | DRG 392 ==
LOC: LAB 11:44 → MEDSURG A 13:46
PROVIDERS: ADMIT Internal Medicine; ATTEND Internal Medicine
DX: Z86.16 Personal history of COVID-19; Z79.01 Long term (current) use of anticoagulants; E11.42 Type 2 diabetes mellitus with diabetic polyneuropathy; Z20.822 Contact with and (suspected) exposure to COVID-19; E86.0 Dehydration; F32.A Depression, unspecified; Z79.899 Other long term (current) drug therapy; E03.9 Hypothyroidism, unspecified; I48.91 Unspecified atrial fibrillation; Z51.81 Encounter for therapeutic drug level monitoring; Z79.84 Long term (current) use of oral hypoglycemic drugs; K57.90 Diverticulosis of intestine, part unspecified, without perforation or abscess without bleeding; K52.9 Noninfective gastroenteritis and colitis, unspecified; T46.0X1A Poisoning by cardiac-stimulant glycosides and drugs of similar action, accidental (unintentional), initial encounter; Z91.81 History of falling; M62.81 Muscle weakness (generalized); R26.81 Unsteadiness on feet; E78.5 Hyperlipidemia, unspecified